=== PATIENT | female | born 1980 | race Caucasian/White ===

== ENCOUNTER 2017-09-09 21:36 | Emergency (ER) | payer BC ==
[2017-09-09 21:46] VITALS: RESP 18; TEMP 98.4
--- NOTE | 2017-09-09 22:50 | ED ---
General Adult HPI - General Chief complaint: Abdominal Pain Stated complaint: right side abdominal pain/15 wks preg Time Seen by Provider: 09/09/17 22:41 Source: patient, RN notes reviewed Mode of arrival: ambulatory Limitations: no limitations - History of Present Illness Initial comments: Patient 36-year-old female who was 15 weeks by ultrasound presented to the emergency room today with chief complaint of symptoms of dysuria that began earlier today. Patient states she came home a dinner shortly thereafter went to use the bathroom. She states after voiding had a sharp pain left side flank area. She states caused her to have increased pain felt nauseated had an episode of vomiting. She states symptoms lasted approximately half hour. She states she's had this same exact scenario happen 3 times after voiding tonight. She did call on-call OB who thought could be a bladder infection set up an appointment early in the morning. Patient states that after the last episode she wasn't sure if she'll be able to go through all night. She is currently pain-free at this time she did take Tylenol prior to coming to the emergency room. She denies any vaginal bleeding or discharge. Patient is . - Related Data Home Medications Medication Instructions Recorded Confirmed Itp-Duxu-Ssqbs Acid 1 cap PO DAILY 09/09/17 09/09/17 [-U Capsule (formulary)] Allergies Allergy/AdvReac Type Severity Reaction Status Date / Time amoxicillin Allergy Unknown Verified 09/09/17 22:37 Childhood egg Allergy Anaphylaxis Verified 09/09/17 22:37 Penicillins Allergy Unknown Verified 09/09/17 22:37 Childhood Review of Systems ROS Statement: Those systems with pertinent positive or pertinent negative responses have been documented in the HPI. ROS Other: All systems not noted in ROS Statement are negative. Past Medical History Past Medical History: No Reported History History of Any Multi-Drug Resistant Organisms: None Reported Past Surgical History: Tonsillectomy Additional Past Surgical History / Comment(s): TMJ Past Psychological History: No Psychological Hx Reported Smoking Status: Never smoker Past Alcohol Use History: None Reported Past Drug Use History: None Reported General Exam - General Exam Comments Initial Comments: General: The patient is awake and alert, in no distress, and does not appear acutely ill. Eye: Pupils are equal, round and reactive to light, extra-ocular movements are intact. No nystagmus. There is normal conjunctiva bilaterally. No signs of icterus. Ears, nose, mouth and throat: There are moist mucous membranes and no oral lesions. Neck: The neck is supple, there is no tenderness or JVD. Gastrointestinal: Soft, non-distended, non-tender abdomen without masses or organomegaly noted. There is no rebound or guarding present. No CVA tenderness. Musculoskeletal: Normal ROM, no tenderness. Strength 5/5. Sensation intact. Pulses equal bilaterally 2+. Neurological: A&O x 3. CN II-XII intact, There are no obvious motor or sensory deficits. Coordination appears grossly intact. Speech is normal. Skin: Skin is warm and dry and no rashes or lesions are noted. Psychiatric: Cooperative, appropriate mood & affect, normal judgment. Limitations: no limitations Course Vital Signs 09/09/17 09/10/17 21:42 00:59 Temperature 98.4 F Pulse Rate 90 72 Respiratory 18 18 Rate Blood Pressure 106/65 93/54 O2 Sat by Pulse 99 100 Oximetry Medical Decision Making - Medical Decision Making Patient reexamined at this time shows no signs of distress. She's been pain- free here in the emergency room. She does admit to some mild discomfort after urinating here. Patient states that she had 3 episodes of pain after voiding. Did have episodes of vomiting associated with this. Patient's urinalysis shows no sign of infection at this time culture is pending. Patient did have 23 red cells. She denies any vaginal bleeding or discharge. Patient states no history of kidney stones. Ultrasound of the kidneys and bladder was performed showing no evidence of hydronephrosis. No sign of a stone at this time. Patient's labs reviewed 15,000 white count. This is felt to be reactive to patient's nausea and vomiting. At this time patient is doing well vitals are stable. Will be discharged home to follow-up with her doctor tomorrow morning. Advised return if any symptoms increase or worsen. Patient states her stay and is in agreement. - Lab Data Result diagrams: 09/09/17 23:55 09/09/17 23:55 Lab Results 09/09/17 09/09/17 09/09/17 Range/Units 22:52 23:55 23:55 WBC 15.1 H (3.8-10.6) k/uL RBC 3.97 (3.80-5.40) m/uL Hgb 12.3 (11.4-16.0) gm/dL Hct 35.8 (34.0-46.0) % MCV 90.2 (80.0-100.0) fL MCH 31.1 (25.0-35.0) pg MCHC 34.5 (31.0-37.0) g/dL RDW 12.4 (11.5-15.5) % Plt Count 190 (150-450) k/uL Neutrophils % 90 % Lymphocytes % 6 % Monocytes % 3 % Eosinophils % 0 % Basophils % 0 % Neutrophils # 13.6 H (1.3-7.7) k/uL Lymphocytes # 0.9 L (1.0-4.8) k/uL Monocytes # 0.5 (0-1.0) k/uL Eosinophils # 0.0 (0-0.7) k/uL Basophils # 0.0 (0-0.2) k/uL Sodium 133 L (137-145) mmol/L Potassium 4.0 (3.5-5.1) mmol/L Chloride 98 (98-107) mmol/L Carbon Dioxide 23 (22-30) mmol/L Anion Gap 12 mmol/L BUN 8 (7-17) mg/dL Creatinine 0.50 L (0.52-1.04) mg/dL Est GFR (CKD-EPI)AfAm >90 (>60 ml/min/1.73 sqM) Est GFR (CKD-EPI)NonAf >90 (>60 ml/min/1.73 sqM) Glucose 93 (74-99) mg/dL Calcium 9.1 (8.4-10.2) mg/dL Total Bilirubin 0.2 (0.2-1.3) mg/dL AST 19 (14-36) U/L ALT 27 (9-52) U/L Alkaline Phosphatase 46 (38-126) U/L Total Protein 6.5 (6.3-8.2) g/dL Albumin 3.7 (3.5-5.0) g/dL Urine Color Yellow Urine Appearance Cloudy H (Clear) Urine pH 6.0 (5.0-8.0) Ur Specific [place] 1.022 (1.001-1.035) Urine Protein Trace H (Negative) Urine Glucose (UA) Negative (Negative) Urine Ketones 2+ H (Negative) Urine Blood Small H (Negative) Urine Nitrite Negative (Negative) Urine Bilirubin Negative (Negative) Urine Urobilinogen <2.0 (<2.0) mg/dL Ur Leukocyte Esterase Negative (Negative) Urine RBC 23 H (0-5) /hpf Urine WBC 3 (0-5) /hpf Ur Squamous Epith Cells 5 H (0-4) /hpf Urine Bacteria Rare H (None) /hpf Urine Mucus Occasional H (None) /hpf Disposition Clinical Impression: Dysuria Disposition: HOME SELF-CARE Condition: Good Instructions: Dysuria (ED) Additional Instructions: Please use medication of Tylenol as discussed. Please follow-up with [facility] MANAGER/ family doctor in the next 1-2 days. Please return to emergency room if the symptoms increase or worsen or for any other concerns. Is patient prescribed a controlled substance at d/c from ED?: No Referrals: None,Stated [Primary Care Provider] - 1-2 days Time of Disposition: 01:37
[2017-09-09 23:17] LABS: Appearance,Urine Cloudy (Clear); Bacteria,Urine Rare /hpf; Bilirubin,Urine Negative (Negative); Blood,Urine Small (Negative); Color,Urine Yellow; Glucose,Urine (UA) Negative (Negative); Ketones,Urine 2+ (Negative); Leukocyte Esterase,Urine Negative (Negative); Mucus,Urine Occasional /hpf; Nitrite,Urine Negative (Negative); Protein,Urine Trace (Negative); RBC,Urine 23 /hpf (0-5); Specific Gravity,Urine 1.022 (1.001-1.035); Squamous Epithelial Cell,Urine 5 /hpf (0-4); Urobilinogen,Urine <2.0 mg/dL (<2.0); WBC,Urine 3 /hpf (0-5)
[2017-09-09] MEDS ORDERED: SODIUM CHLORIDE 0.9% 1,000 ML IV STA (23:38)
[2017-09-10 00:10] LABS: Basophils % (A) 0 %; Eosinophils % (A) 0 %; HCT 35.8 % (34.0-46.0); HGB 12.3 gm/dL (11.4-16.0); Lymphocytes # (A) 0.9 k/uL (1.0-4.8); Lymphocytes % (A) 6 %; MCH 31.1 pg (25.0-35.0); MCHC 34.5 g/dL (31.0-37.0); MCV 90.2 fL (80.0-100.0); Monocytes # (A) 0.5 k/uL (0-1.0); Monocytes % (A) 3 %; Neutrophils # (A) 13.6 k/uL (1.3-7.7); Neutrophils % (A) 90 %; Platelet Count 190 k/uL (150-450); RBC 3.97 m/uL (3.80-5.40); RDW 12.4 % (11.5-15.5); WBC 15.1 k/uL (3.8-10.6)
[2017-09-10 00:32] LABS: ALT 27 U/L (9-52); AST 19 U/L (14-36); Albumin 3.7 g/dL (3.5-5.0); Alkaline Phosphatase 46 U/L (38-126); Anion Gap 12 mmol/L; Blood Urea Nitrogen 8 mg/dL (7-17); Calcium 9.1 mg/dL (8.4-10.2); Carbon Dioxide 23 mmol/L (22-30); Chloride 98 mmol/L (98-107); Glucose 93 mg/dL (74-99); Sodium 133 mmol/L (137-145); Total Bilirubin 0.2 mg/dL (0.2-1.3); Total Protein 6.5 g/dL (6.3-8.2)
--- NOTE | 2017-09-10 00:53 | US ---
EXAMINATION TYPE: US kidneys/renal and bladder DATE OF EXAM: 09/10/2017 COMPARISON: NONE CLINICAL HISTORY: Pain. Pain while urinating. Exam limitations on left side due to rib shadowing. EXAM MEASUREMENTS: Right Kidney: 11.2 x 4.1 x 4.0 cm Left Kidney: 10.7 x 4.4 x 4.1 cm Right Kidney: No hydronephrosis or masses seen Left Kidney: No hydronephrosis or masses seen Bladder: wnl Bilateral Jets seen: Yes There is no evidence for hydronephrosis at this point in time. No nephrolithiasis is seen. No more s are identified. The urinary bladder is anechoic. Bilateral ureteral jets are seen. IMPRESSION: Negative bilateral renal sonogram. No evidence of renal mass or obstruction.
[2017-09-10 01:52] VITALS: BP 91/50; PULSE 65
== END 2017-09-10 01:51 | disposition home or self-care (01) ==
LOC: EC 21:36
DX: O99.89 Other specified diseases and conditions complicating pregnancy, childbirth and the puerperium (principal); R30.0 Dysuria; O21.9 Vomiting of pregnancy, unspecified; O26.892 Other specified pregnancy related conditions, second trimester; R10.9 Unspecified abdominal pain; Z3A.15 15 weeks gestation of pregnancy; Z88.0 Allergy status to penicillin; Z91.012 Allergy to eggs
CPT/HCPCS: 36415; 76770; 80053; 81001; 85025; 87086; 96360; 99284

== ENCOUNTER 2018-02-19 04:59 | Outpatient (CLI) | payer BC ==
[2018-02-19 07:14] VITALS: BP 131/75; PULSE 83; RESP 16; TEMP 97.7
--- NOTE | 2018-03-15 09:29 | P.MSEPDOC ---
Presenting Problems - Arrival Data Date of Arrival on Unit: 02/19/18 Time of Arrival on Unit: 05:10 Mode of Transport: Ambulatory - Complaint OB-Reason for Admission/Chief Complaint: Possible Onset of Labor Medical History - Information : 1 Para: 0 Term: 0 : 0 Abortions: Spontaneous or Elective: 0 Number of Living Children: 0 - Gestational Age Gestational Age by CHAGO (wks/days): 38 Weeks and 1 Days Review of Systems - Review of Systems Constitutional: No problems Breast: No problems ENT: No problems Cardiovascular: No problems Respiratory: No problems Gastrointestinal: No problems Genitourinary: No problems Musculoskeletal: No problems Neurological: No problems Skin: No problems Vital Signs - Temperature Temperature: 97.7 F Temperature Source: Tympanic - Pulse Right Brachial Pulse Rate: 83 Pulse Assessment Method: Automatic Cuff - Respirations Respiratory Rate: 16 Oxygen Delivery Method: Room Air - Blood Pressure Right Arm Blood Pressure: 131/75 Blood Pressure Mean: 93 Blood Pressure Source: Automatic Cuff Medical Screen Scoring (Pre) - Cervical Exam Dilation: 1-3 cm = 1 Effacement: More than 50% = 2 Membranes: Intact - Uterine Contractions Frequency: > 5 minutes apart = 1 Duration: > 40 seconds = 2 Intensity: N/A - Maternal Vital Signs Maternal Temperature: N/A Maternal Blood Pressure: N/A Signs of Preeclampsia: N/A Maternal Respirations: N/A - Pain Assessment Pain Location and Character: Abdomen Pain Scale Used: Numeric (1 - 10) Pain Intensity: 5 Pain Management Goal: 2 Pain Description: *Acute Pain Radiation Location: na Pain Frequency: Intermittent Pain Duration: 2 Pain Duration Units: Minutes Pain Behavior: Vocalization Pain Aggravating Factors: None Non-Pharmacological Interventions: Position/Reposition - Maternal Trauma Maternal Trauma: N/A - Assessment Baseline FHR: 145 Heart Rate - NICHD Category: Category I (Normal) = 0 NST: Reactive Position: N/A Station: N/A - Total Score Total Score (Pre): 6 - Level of Risk Level of Risk: Medium (6-9) Physician Notification (Pre) - Physician Notified Physician Notified Date: 02/19/18 Physician Notified Time: 06:31 Physician/Practitioner Notifed:: Dr. Ulloa Spoke With: Dr. Ulloa New Order Received: Yes - Notification Comment Comment: d/c home to f/up with Dr. Betancur Disposition - Disposition OB Disposition: Physician follow up in office, Discharge to home Discharge Date: 02/19/18 Discharge Time: 06:32 I agree with the RN Medical Screening Exam: Yes Risk & Benefit of care provided described in d/c instruction: Yes Diagnosis: FALSE LABOR AT OR AFTER 37 COMPLETED WEEKS OF GESTATION
== END 2018-02-19 06:42 | disposition home or self-care (01) ==
LOC: FBPOP 04:59
PROVIDERS: ATTEND Obstetrics & Gynecology
DX: O47.1 False labor at or after 37 completed weeks of gestation (principal); Z3A.38 38 weeks gestation of pregnancy
CPT/HCPCS: 59025; 99213

== ENCOUNTER 2018-02-23 09:04 | Inpatient (IN) | payer BC ==
[2018-02-23 10:12] VITALS: BMI 26.6
[2018-02-23] MEDS ORDERED: TERBUTALINE 1 MG/ML VIAL SQ PRN (10:14)
[2018-02-23] MEDS ORDERED: METHYLERGONOVINE 0.2 MG/ML 1 ML AMP IM PRN (10:14)
[2018-02-23] MEDS ORDERED: LIDOCAINE 0.5% (PF) 5 MG/ML (50 ML SDV) SQ PRN (10:14)
[2018-02-23] MEDS ORDERED: OXYTOCIN 10 UNIT/ML 1 ML VIAL IM PRN (10:14)
[2018-02-23] MEDS ORDERED: CARBOPROST TROMETHAMINE 250 MCG/ML 1 ML AMP IM PRN (10:14)
[2018-02-23 10:20] LABS: Basophils % (A) 0 %; Eosinophils # (A) 0.1 k/uL (0-0.7); Eosinophils % (A) 1 %; HCT 38.2 % (34.0-46.0); HGB 12.5 gm/dL (11.4-16.0); Lymphocytes # (A) 1.9 k/uL (1.0-4.8); Lymphocytes % (A) 16 %; MCH 29.7 pg (25.0-35.0); MCHC 32.8 g/dL (31.0-37.0); MCV 90.7 fL (80.0-100.0); Mean Platelet Volume 8.1; Monocytes # (A) 0.5 k/uL (0-1.0); Monocytes % (A) 4 %; Neutrophils # (A) 9.3 k/uL (1.3-7.7); Neutrophils % (A) 77 %; Platelet Count 217 k/uL (150-450); RBC 4.21 m/uL (3.80-5.40); RDW 12.8 % (11.5-15.5); WBC 12.1 k/uL (3.8-10.6)
[2018-02-23] MEDS: LACTATED RINGERS 1,000 ML IV SCH ×2 (10:23→11:40)
[2018-02-23] MEDS ORDERED: SODIUM CHLORIDE 0.9% 100 ML BAG ONE (10:52)
[2018-02-23] MEDS ORDERED: ROPIVACAINE 5MG/ML 20ML VIAL ONE (10:52)
[2018-02-23] MEDS ORDERED: fentaNYL (PF) 50 MCG/ML 5 ML AMP ONE (10:52)
[2018-02-23] MEDS: OXYTOCIN 20 UNITS/1000 ML NS 1,000 ML IV SCH (12:45)
--- NOTE | 2018-02-23 16:50 | P.HPOB ---
History of Present Illness H&P Date: 02/23/18 Chief Complaint: IUP @ SROM This a 37 yo at 38 5/7 weeks gestation that presents with c/o SROM clear in nature. around 2 am. she notes irregular contractions. Patient has been receiving routine care with myself in 7 weeks of gestation. Patient is noted to be advanced maternal age on blood work she had a blood type of A+, rubella immune, RPR nonreactive, hepatitis B surface antigen negative, HIV negative, her 1 hour gestational diabetes screen was normal at 97 and group beta strep was negative on 02/01/2018. Review of Systems Constitutional: Denies chills, Denies fatigue, Denies fever Ears, nose, mouth and throat: Denies headache Cardiovascular: Reports leg edema Respiratory: Denies cough, Denies dyspnea Gastrointestinal: Denies constipation, Denies diarrhea, Denies nausea, Denies vomiting Genitourinary: Reports Past Medical History Past Medical History: No Reported History History of Any Multi-Drug Resistant Organisms: None Reported Past Surgical History: Tonsillectomy Additional Past Surgical History / Comment(s): TMJ Past Anesthesia/Blood Transfusion Reactions: No Reported Reaction Past Psychological History: No Psychological Hx Reported Smoking Status: Never smoker Past Alcohol Use History: None Reported Past Drug Use History: None Reported - Past Family History Father Family Medical History: Coronary Artery Disease (CAD) Medications and Allergies Home Medications Medication Instructions Recorded Confirmed Type Bie-Xvnf-Wcgzw Acid 1 cap PO DAILY 09/09/17 02/23/18 History [-U Capsule (formulary)] Allergies Allergy/AdvReac Type Severity Reaction Status Date / Time amoxicillin Allergy Unknown Verified 02/23/18 09:20 Childhood egg Allergy Anaphylaxis Verified 02/23/18 09:20 Penicillins Allergy Unknown Verified 02/23/18 09:20 Childhood Exam Osteopathic Statement: *. No significant issues noted on an osteopathic structural exam other than those noted in the History and Physical/Consult. Vital Signs Temp Pulse Resp BP Pulse Ox 02/23/18 09:59 97.3 F L 81 18 129/75 100 02/23/18 09:43 97.3 F L 82 18 129/75 100 Intake and Output 02/22/18 02/23/18 02/23/18 22:59 06:59 14:59 Other: Weight 77.111 kg Targeted physical exam was performed in general this is a well-nourished well- developed female in no acute distress, she notes nonlabored breathing lungs are clear to auscultation bilaterally, heart is noted to have a regular rhythm, abdomen is gravid and appropriate for gestational age, legs were noted to have trace bilateral lower extremity swelling, on vaginal exam cervix is noted to be 5, 100, -1 with clear fluid. heart tones were noted to be reactive and she was leann every 5 minutes. Results Result Diagrams: 02/23/18 10:10 Abnormal Lab Results - Last 24 Hours (Table) 02/23/18 Range/Units 10:10 WBC 12.1 H (3.8-10.6) k/uL Neutrophils # 9.3 H (1.3-7.7) k/uL Assessment and Plan (1) Term Current Visit: Yes Status: Acute Code(s): Z34.80 - ENCOUNTER FOR SUPRVSN OF NORMAL , UNSP TRIMESTER SNOMED Code(s): 58194123 (2) SROM (spontaneous rupture of membranes) Current Visit: Yes Status: Acute Code(s): PRJ4815 - SNOMED Code(s): 504071972 Plan: We'll admit to labor and delivery. Patient does request epidural when uncomfortable and we will inform anesthesia at that time. Anticipate spontaneous vaginal delivery later this evening.
[2018-02-23] MEDS ORDERED: CITRIC ACID-SODIUM CITRATE 15 ML CUP PO ONE (17:48)
[2018-02-23] MEDS ORDERED: CLINDAMYCIN 600 MG in DEXTROSE 5% IN WATER 50 ML IVPB STA ×2 (17:49)
[2018-02-23] MEDS ORDERED: OXYTOCIN 10 UNIT/ML 1 ML VIAL ONE (18:01)
[2018-02-23] MEDS ORDERED: ONDANSETRON 4 MG/2 ML VIAL ONE (18:01)
[2018-02-23] MEDS ORDERED: MORPHINE SULFATE (PF) 0.3 MG/0.3 ML SYR ONE (18:01)
[2018-02-23] MEDS ORDERED: ONDANSETRON 4 MG/2 ML VIAL IVP PRN ×2 (18:29→18:40)
[2018-02-23] MEDS ORDERED: NALOXONE 0.4 MG/ML 1 ML VIAL IV PRN ×2 (18:29→18:40)
[2018-02-23] MEDS ORDERED: KETOROLAC 30 MG/ML 1 ML VIAL IVP PRN (18:29)
[2018-02-23] MEDS ORDERED: HYDROmorphone 1 MG/ML 1 ML SYRINGE IVP PRN (18:29)
[2018-02-23] MEDS ORDERED: diphenhydrAMINE 50 MG/ML 1 ML VIAL IVP PRN ×3 (18:29→18:40)
[2018-02-23] MEDS ORDERED: diphenhydrAMINE 25 MG CAP PO PRN (18:40)
[2018-02-23] MEDS ORDERED: ACETAMINOPHEN TAB 325 MG TAB PO PRN (18:40)
[2018-02-23] MEDS ORDERED: diphenhydrAMINE 50 MG CAP PO PRN (18:40)
[2018-02-23] MEDS ORDERED: ZOLPIDEM 5 MG TAB PO PRN (18:40)
[2018-02-23] MEDS ORDERED: ACETAMINOPHEN IV (For NPO) 1,000 MG in EMPTY BAG 1 BAG IVPB ONE (18:40)
[2018-02-23] MEDS ORDERED: HYDROcodone/APAP 7.5-325MG 1 EACH TAB PO PRN (18:40)
[2018-02-23] MEDS ORDERED: METOCLOPRAMIDE 5 MG/ML 2 ML VIAL IVP PRN (18:40)
[2018-02-23] MEDS ORDERED: LANOLIN CREAM 5 GM TUBE TOPICAL PRN (18:40)
--- NOTE | 2018-02-23 18:40 | P.OP ---
Date of Procedure: 02/23/18 Preoperative Diagnosis: IUP at 38-5/7 weeks, spontaneous rupture of membranes, arrest of descent Postoperative Diagnosis: Same Procedure(s) Performed: Primary low transverse section Anesthesia: epidural Surgeon: Cyndie Betancur Telemarketer #1: Tariq Epps Estimated Blood Loss (ml): 300 IV fluids (ml): 400 Urine output (ml): 100 Pathology: none sent Condition: stable Disposition: observation Indications for Procedure: Arrest of descent after 1-1/2 hours of pushing. head remained at 0 station with increasing It. heart tones, baseline was noted to be increasing to 170s Operative Findings: Normal uterus tubes and ovaries were appreciated male delivered at 1813, weight of 8 lbs. 5 oz. with Apgars of 69 and 9 at one and 5 and 10 minutes respectively. Description of Procedure: The patient was prepped and draped in the usual fashion after epidural anesthesia was found to be adequate.. A Pfannenstiel incision was made and extended of the abdominal cavity without difficulty. The bladder peritoneum was elevated and incised and reflected distally. A 2 cm incision was made in the transverse plane of the lower uterine segment to enter the uterus at which time clear fluid was noted. The incision was extended in both directions using the bandage scissors. The head was encountered within the field and delivered up and through the incision where the nose and mouth were thoroughly suctioned. Remainder of the infant was delivered onto the surgical field where the cord was doubly clamped, cut, and the infant was passed for resuscitative measures with weight and Apgars as noted above. The placenta was delivered manually, intact, and was grossly normal with a grossly normal three-vessel cord. The uterus was exteriorized and the interior cavity of the uterus swept of any remaining placental and membranous fragments with a laparotomy sponge. The margins of the incision were grasped with allis clamps and the incision closed in 2 layers. First layer was a running locking layer of 0 vicryl from margin to margin followed by a second layer of imbricating 0 vicryl from margin to margin. Any small points of bleeding were then made hemostatic with the Bovie. Once hemostasis was achieved, the posterior cul-de-sac was suctioned with a guard and the uterine and ovarian findings are as noted above. The uterus was replaced within the abdominal cavity and the gutters swept of any remaining blood fluid or clot. The incision was again reexamined and hemostasis was noted to be excellent. Any small point of bleeding were made hemostatic with the Bovie. Once hemostasis was achieved the parietal peritoneum was loosely reapproximated. The layer of muscles were examined and made hemostatic with the Bovie. Attention was then turned to the fascia which was closed with 2 running stitches of 0 Vicryl proceeding from the lateral margins to the midpoint. The subcutaneous tissues were irrigated, made hemostatic with the Bovie. The skin was reapproximated with 4-0 vicryl. Estimated blood loss for the case was approximately 300 mL. All sponge instrument and needle counts are correct. There were no complications. The patient tolerated the procedure well and proceeded to the recovery room in stable condition. Both mother and infant are resting comfortably in recovery.
[2018-02-23] MEDS ORDERED: OXYTOCIN 20 UNITS/1000 ML NS 1,000 ML IV SCH (18:45)
[2018-02-24] MEDS ORDERED: IBUPROFEN IV 800 MG in SODIUM CHLORIDE 0.9% 250 ML IV ONE (03:30)
--- NOTE | 2018-02-24 07:30 | P.PN ---
Progress Note - Text Progress Note Date: 02/24/18 Postoperative day 1 status post section under epidural anesthesia, and epidural morphine given for postoperative analgesia, patient doing well, there is no anesthesia related complications, Patient had no headache, vital signs stable , Assessment and plan= postop day 1 status post , doing well there is no anesthesia related complication.
[2018-02-24 08:02] LABS: Basophils % (A) 0 %; Eosinophils # (A) 0.1 k/uL (0-0.7); Eosinophils % (A) 0 %; HCT 30.9 % (34.0-46.0); HGB 10.3 gm/dL (11.4-16.0); Lymphocytes # (A) 1.3 k/uL (1.0-4.8); Lymphocytes % (A) 7 %; MCH 30.2 pg (25.0-35.0); MCHC 33.3 g/dL (31.0-37.0); MCV 90.7 fL (80.0-100.0); Mean Platelet Volume 8.6; Monocytes # (A) 0.8 k/uL (0-1.0); Monocytes % (A) 4 %; Neutrophils # (A) 17.1 k/uL (1.3-7.7); Neutrophils % (A) 89 %; Platelet Count 153 k/uL (150-450); RBC 3.41 m/uL (3.80-5.40); WBC 19.3 k/uL (3.8-10.6)
[2018-02-24] MEDS: SENNOSIDES-DOCUSATE SODIUM 1 EACH TAB PO SCH ×3 (08:08→19:55)
[2018-02-24] MEDS: LACTATED RINGERS 1,000 ML IV SCH ×4 (08:11→20:54)
--- NOTE | 2018-02-24 08:33 | P.PNOBGPC ---
Subjective - Subjective Principal diagnosis: POD 1 LTCS, arrest of descent Interval history: Patient is doing well postoperatively. She is ambulating without difficulty. She is tolerating regular diet without nausea or vomiting. Adair was discontinued this morning and we are awaiting a spontaneous void. Lochia is minimal. She states breast feeding is going well Patient reports: Reports appetite normal, Reports voiding normally, Reports pain well controlled, Reports ambulating normally : doing well, nursing well Objective - Vital Signs Latest vital signs: Vital Signs Temp Pulse Resp BP Pulse Ox 02/24/18 05:00 16 02/24/18 04:00 83 16 102/59 02/24/18 03:00 16 02/24/18 01:00 16 02/23/18 23:56 97.6 F 69 16 111/60 99 02/23/18 23:00 16 02/23/18 21:29 18 98 02/23/18 20:42 97.4 F L 67 18 114/61 02/23/18 20:12 69 18 117/66 100 02/23/18 19:42 97.9 F 79 18 119/62 98 02/23/18 19:29 91 18 99 02/23/18 19:27 91 18 109/71 02/23/18 19:12 97.8 F 84 18 122/73 96 02/23/18 18:57 95 18 128/82 97 02/23/18 18:42 99.0 F 93 18 125/60 97 02/23/18 09:59 97.3 F L 81 18 129/75 100 02/23/18 09:43 97.3 F L 82 18 129/75 100 Intake and Output 02/23/18 02/24/18 02/24/18 22:59 06:59 14:59 Intake Total 250 Output Total 300 Balance -50 Intake: Intake, IV Titration 250 Amount Lactated Ringers 1,000 ml 250 @ 125 mls/hr IV .Q8H [facility] Rx#:[id number] Output: Urine 300 Other: Voiding Method Indwelling Catheter Indwelling Catheter # Voids 0 - Exam Extremities: Present: normal Abdomen: Present: normal appearance, soft Incision: Present: normal, dry, intact Uterus: Present: normal, firm - Labs Labs: Abnormal Lab Results - Last 24 Hours (Table) 02/23/18 02/24/18 Range/Units 10:10 07:47 WBC 12.1 H 19.3 H (3.8-10.6) k/uL RBC 3.41 L (3.80-5.40) m/uL Hgb 10.3 L (11.4-16.0) gm/dL Hct 30.9 L (34.0-46.0) % Neutrophils # 9.3 H 17.1 H (1.3-7.7) k/uL Assessment and Plan (1) Term Current Visit: Yes Status: Acute Code(s): Z34.80 - ENCOUNTER FOR SUPRVSN OF NORMAL , UNSP TRIMESTER SNOMED Code(s): 50788780 (2) SROM (spontaneous rupture of membranes) Current Visit: Yes Status: Acute Code(s): HWC2066 - SNOMED Code(s): 152718329 (3) Arrest of descent, delivered, current hospitalization Current Visit: Yes Status: Acute Code(s): O62.1 - SECONDARY UTERINE INERTIA SNOMED Code(s): 62252950 (4) S/P section Current Visit: Yes Status: Acute Code(s): Z98.891 - HISTORY OF UTERINE SCAR FROM PREVIOUS SURGERY SNOMED Code(s): 792475367 Plan: We'll continue postoperative care. And anticipate discharge home tomorrow.
[2018-02-24] MEDS ORDERED: PRENATAL VIT-IRON-FOLIC ACID 1 EACH CAP PO SCH (12:00)
[2018-02-24 12:07] VITALS: RESP 16
[2018-02-24] MEDS: HYDROcodone/APAP 5-325MG 1 EACH TAB PO PRN ×3 (12:20→22:04)
[2018-02-24] MEDS: IBUPROFEN 600 MG TAB PO PRN (19:52)
[2018-02-24] MEDS: OXYTOCIN 20 UNITS/1000 ML NS 1,000 ML IV SCH (20:47)
[2018-02-25] MEDS: IBUPROFEN 600 MG TAB PO PRN ×2 (03:57→13:04)
[2018-02-25] MEDS: HYDROcodone/APAP 5-325MG 1 EACH TAB PO PRN (06:48)
--- NOTE | 2018-02-25 08:07 | P.DS ---
Providers Date of admission: 02/23/18 09:30 Expected date of discharge: 02/25/18 Attending physician: Cyndie Betancur Primary care physician: Stated None - Discharge Diagnosis(es) (1) Term Current Visit: Yes Status: Acute (2) SROM (spontaneous rupture of membranes) Current Visit: Yes Status: Acute (3) Arrest of descent, delivered, current hospitalization Current Visit: Yes Status: Acute (4) S/P section Current Visit: Yes Status: Acute Hospital Course: This is a 37-year-old 1 para 0 that presented to labor and delivery at 38-5/7 weeks with an estimated due date of 1220. Patient noted spontaneous rupture of membranes clear in nature acid loader. Patient was leann irregularly at that time. Patient was making cervical progressed eventually becoming uncomfortable and requesting an epidural. Epidural was placed without difficulty by the anesthesia department. Patient's contractions were noted to be spacing therefore Pitocin augmentation of labor was begun. Patient progressed to complete began pushing and had arrest of descent. Patient pushed for 2 hours with no descent past -1 station and increasing It. At the time the decision was made to take the patient for a primary low transverse section secondary to arrest of descent or second stage of labor. Patient was agreeable for further details on the please see the operative report. Patient's postoperative course has been uneventful. Patient denies concerns on this postop day #2. She is involuting and voiding without difficulty. She is tolerating a regular diet without nausea or vomiting. Her lochia is minimal. She is breast-feeding without difficulty. She does wish discharge home today. Plan - Discharge Summary New Discharge Prescriptions: No Action Yti-Fqqi-Kkiji Acid [-U Capsule (formulary)] 1 cap PO DAILY Discharge Medication List Hqs-Oeeo-Rdzgs Acid [-U Capsule (formulary)] 1 cap PO DAILY [History] Follow up Appointment(s)/Referral(s): Cyndie Betancur DO [Doctor of Osteopathic Medicine] - 2 Weeks Patient Instructions/Handouts: (DC), (GEN) Discharge Disposition: HOME SELF-CARE
[2018-02-25] MEDS: SENNOSIDES-DOCUSATE SODIUM 1 EACH TAB PO SCH (08:19)
[2018-02-25 08:23] VITALS: BP 114/56; PULSE 80; TEMP 98.1
== END 2018-02-25 15:35 | disposition home or self-care (01) | DRG 788 ==
LOC: FBPOP 09:04 → 4FBP 09:30
PROVIDERS: ADMIT Obstetrics & Gynecology Obstetrics; ATTEND Obstetrics & Gynecology Obstetrics
PROC: 10D00Z1 Extraction of Products of Conception, Low, Open Approach (ICD-10-PCS; principal; 2018-02-23 18:17)
DX: O62.1 Secondary uterine inertia (principal); Z3A.38 38 weeks gestation of pregnancy; Z37.0 Single live birth
CPT/HCPCS: 59025; 84112; 85025; 86850; 86900; 86901; 99213

== ENCOUNTER → 2019-04-13 | Outpatient (CLI) | payer BC ==
--- NOTE | 2019-04-13 10:48 | MM ---
Reason for exam: clinical finding. History: Patient had first child at age 38. Family history of breast cancer in maternal aunt at age 60. Physical Findings: Nurse did not find any significant physical abnormalities on exam. MG Diagnostic Mammo w CAD HELEN Bilateral CC and MLO view(s) were taken. The breast tissue is heterogeneously dense. This may lower the sensitivity of mammography. No suspicious abnormality. These results were verbally communicated with the patient and result sheet given to the patient on 04/13/19. ASSESSMENT: Negative, BI-RAD 1 RECOMMENDATION: Routine screening mammogram of both breasts at age 40. (or sooner if clinically indicated) Manage on a clinical basis. Yellow and white nipple discharge are physiologic. If any clear nipple discharge persists retroareolar ultrasound should be performed.
== END | disposition home or self-care (01) ==
LOC: RADMAMWWP 09:10
PROVIDERS: ATTEND Obstetrics & Gynecology Obstetrics
DX: N64.4 Mastodynia (principal); N64.52 Nipple discharge
CPT/HCPCS: 77066

== ENCOUNTER 2020-05-08 09:30 | Outpatient (CLI) | payer BC ==
[2020-05-08] MEDS ORDERED: TERBUTALINE 1 MG/ML VIAL SQ PRN (10:09)
[2020-05-08 10:11] LABS: Appearance,Urine Clear (Clear); Bilirubin,Urine Negative (Negative); Blood,Urine Negative (Negative); Color,Urine Colorless; Glucose,Urine (UA) Negative (Negative); Ketones,Urine Negative (Negative); Leukocyte Esterase,Urine Negative (Negative); Nitrite,Urine Negative (Negative); PH, Urine 6.5 (5.0-8.0); Protein,Urine Negative (Negative); Specific Gravity,Urine 1.002 (1.001-1.035); Urobilinogen,Urine <2.0 mg/dL (<2.0)
[2020-05-08 11:26] VITALS: PULSE 84; RESP 16; TEMP 97.7
[2020-05-08 11:28] VITALS: BP 121/68
--- NOTE | 2020-05-11 15:40 | P.MSEPDOC ---
Presenting Problems - Arrival Data Date of Arrival on Unit: 05/08/20 Time of Arrival on Unit: 09:30 Mode of Transport: Ambulatory - Complaint OB-Reason for Admission/Chief Complaint: Decreased Movement Comment: Pt reports decreased movement for several hours as well as contractions Medical History - Information : 2 Para: 1 Term: 1 : 0 Abortions: Spontaneous or Elective: 0 Number of Living Children: 1 - Gestational Age Gestational Age by CHAGO (wks/days): 34 Weeks and 5 Days - History Complications: Prior Review of Systems - Review of Systems Constitutional: No problems Breast: No problems ENT: No problems Cardiovascular: No problems Respiratory: No problems Gastrointestinal: No problems Genitourinary: No problems Musculoskeletal: No problems Neurological: No problems Skin: No problems Vital Signs - Temperature Temperature: 97.7 F Temperature Source: Temporal Artery Scan - Pulse Right Sitting Brachial Pulse Rate: 84 Pulse Assessment Method: Automatic Cuff - Respirations Respiratory Rate: 16 Oxygen Delivery Method: Room Air O2 Sat by Pulse Oximetry: 99 - Blood Pressure Right Arm Sitting Blood Pressure: 121/68 Blood Pressure Mean: 85 Blood Pressure Source: Automatic Cuff Medical Screen Scoring (Pre) - Cervical Exam Dilation: 0 cm = 0 Membranes: Intact - Uterine Contractions Frequency: < 36 weeks = 6, Scheduled / = 6 Duration: > 40 seconds = 2 Intensity: N/A - Maternal Vital Signs Maternal Temperature: N/A Maternal Blood Pressure: N/A Signs of Preeclampsia: N/A Maternal Respirations: N/A - Maternal Trauma Maternal Trauma: N/A - Assessment - Baby A Baseline FHR: 140 Heart Rate - NICHD Category: Category I (Normal) = 0 NST: Reactive Position: N/A Station: N/A - Total Score - Baby A Total Score - Baby A: 14 - Total Score - Baby B Total Score - Baby B: 14 - Total Score - Baby C Total Score - Baby C: 14 - Level of Risk - Baby A Level of Risk - Baby A: High (10+) - Level of Risk - Baby B Level of Risk - Baby B: High (10+) - Level of Risk - Baby C Level of Risk - Baby C: High (10+) Physician Notification (Pre) - Physician Notified Physician Notified Date: 05/08/20 Physician Notified Time: 09:53 New Order Received: Yes - Notification Comment Comment: Spk c\Dr. Betancur, present on unit, advsd , 34 07/20 to triage c\concerns of. decreased movement and contractions, leann q2min, pt denies pain. c\contraction, has suprapubic pressure. heart tones reactive. Orders UA, FFN and. SVE and admin dose of Terb. Medical Screen Scoring (Post) - Uterine Contractions Frequency: > 5 minutes apart = 1 - Assessment - Baby A Heart Rate: 140 Heart Rate - NICHD Category: Category I (Normal) = 0 NST: Reactive Position: N/A Station: N/A - Total Score Total Score - Baby A: 1 Total Score - Baby B: 1 Total Score - Baby C: 1 - Post Treatment Level of Risk Post Treatment Level of Risk - Baby A: Low (0-5) Post Treatment Level of Risk - Baby B: Low (0-5) Post Treatment Level of Risk - Baby C: Low (0-5) Physician Notification (Post) - Physician Notified Physician Notified Date: 05/08/20 Physician Notified Time: 11:05 Physician/Practitioner Notified:: Pipe Spoke With: Pipe New Order Received: Yes - Notification Comment Comment: Spk c\Dr. Betancur, advsd of negative FFN, previously reviewed UA, pts contraction. pattern has ceased, contracted 1x in 30 mins. Reactive FHT. Pt has appt tomorrow c\Dr. Betancur at 0830. Order's rec'd to d/c home, follow up as scheduled. Disposition - Disposition OB Disposition: Discharge to home, Written follow up instructions reviewed Discharge Date: 05/08/20 Discharge Time: 11:20 I agree with the RN Medical Screening Exam: Yes Case reviewed; plan agreed upon as documented in EMR&OBIX.: Yes Diagnosis: FALSE LABOR BEFORE 37 COMPLETED WEEKS OF GEST, THIRD TRI
== END 2020-05-08 11:20 | disposition home or self-care (01) ==
LOC: FBPOP 09:30
PROVIDERS: ATTEND Obstetrics & Gynecology Obstetrics
DX: O47.03 False labor before 37 completed weeks of gestation, third trimester (principal); Z3A.34 34 weeks gestation of pregnancy; O36.8130 Decreased fetal movements, third trimester, not applicable or unspecified
CPT/HCPCS: 59025; 99214; 96372; 82731; 81003; J3105

== ENCOUNTER 2020-05-25 19:48 | Outpatient (CLI) | payer BC ==
[2020-05-25] MEDS ORDERED: TERBUTALINE 1 MG/ML VIAL SQ STA (21:26)
[2020-05-25] MEDS ORDERED: LACTATED RINGERS 1,000 ML IV ONE (21:30)
[2020-05-25 21:57] VITALS: RESP 20
[2020-05-25 23:05] VITALS: BP 121/59; PULSE 86; TEMP 97.3
== END 2020-05-25 22:46 | disposition home or self-care (01) ==
LOC: FBPOP 19:48
PROVIDERS: ATTEND Obstetrics & Gynecology
DX: O26.893 Other specified pregnancy related conditions, third trimester (principal); Z3A.00 Weeks of gestation of pregnancy not specified
CPT/HCPCS: 59025; 99214; 96360; 96372; J3105

== ENCOUNTER 2020-06-07 09:52 | Inpatient (IN) | payer BC ==
[2020-06-06 09:11] VITALS: BMI 25.8
[2020-06-07] MEDS ORDERED: CITRIC ACID-SODIUM CITRATE 15 ML CUP PO ONE (10:48)
[2020-06-07] MEDS ORDERED: LACTATED RINGERS 1,000 ML IV ONE (10:48)
[2020-06-07] MEDS ORDERED: CLINDAMYCIN 900 MG in DEXTROSE 5% IN WATER 50 ML IVPB ONE ×2 (10:48)
[2020-06-07 11:10] LABS: Basophils % (A) 0 %; Eosinophils # (A) 0.6 k/uL (0-0.7); Eosinophils % (A) 5 %; HCT 36.3 % (34.0-46.0); HGB 12.3 gm/dL (11.4-16.0); Lymphocytes # (A) 1.4 k/uL (1.0-4.8); Lymphocytes % (A) 12 %; MCH 31.1 pg (25.0-35.0); MCV 91.5 fL (80.0-100.0); Mean Platelet Volume 9.3; Monocytes # (A) 0.5 k/uL (0-1.0); Monocytes % (A) 4 %; Neutrophils # (A) 9.1 k/uL (1.3-7.7); Neutrophils % (A) 77 %; Platelet Count 200 k/uL (150-450); RBC 3.96 m/uL (3.80-5.40); RDW 13.4 % (11.5-15.5); WBC 11.8 k/uL (3.8-10.6)
[2020-06-07] MEDS ORDERED: MORPHINE SULFATE (PF) 0.3 MG/0.3 ML SYR ONE (12:08)
[2020-06-07] MEDS ORDERED: ePHEDrine SULFATE/0.9% NACL/PF 50 MG/5 ML SYRINGE IV ONE (12:08)
[2020-06-07] MEDS ORDERED: ONDANSETRON 4 MG/2 ML VIAL ONE (12:08)
[2020-06-07] MEDS ORDERED: OXYTOCIN 10 UNIT/ML 1 ML VIAL ONE (12:08)
[2020-06-07] MEDS ORDERED: NALBUPHINE 10 MG/ML (1 ML AMP) ONE (12:08)
[2020-06-07] MEDS ORDERED: ONDANSETRON 4 MG/2 ML VIAL IVP PRN (12:09)
[2020-06-07] MEDS ORDERED: diphenhydrAMINE 50 MG/ML 1 ML VIAL IVP PRN ×2 (12:09)
[2020-06-07] MEDS ORDERED: diphenhydrAMINE 25 MG CAP PO PRN (12:09)
[2020-06-07] MEDS ORDERED: METOCLOPRAMIDE 5 MG/ML 2 ML VIAL IVP PRN (12:09)
[2020-06-07] MEDS ORDERED: diphenhydrAMINE 50 MG CAP PO PRN (12:09)
[2020-06-07] MEDS ORDERED: NALOXONE 0.4 MG/ML 1 ML VIAL IV PRN (12:09)
[2020-06-07] MEDS ORDERED: SIMETHICONE 80 MG CHEWABLE PO PRN (12:09)
[2020-06-07] MEDS ORDERED: ZOLPIDEM 5 MG TAB PO PRN (12:09)
[2020-06-07] MEDS ORDERED: IBUPROFEN IV 800 MG in SODIUM CHLORIDE 0.9% 250 ML IV ONE (12:10)
[2020-06-07] MEDS ORDERED: OXYTOCIN 30 UNITS/500 ML NS 30 UNIT in SALINE 1 500ML.BAG IV SCH (12:15)
--- NOTE | 2020-06-07 13:11 | P.OP ---
Date of Procedure: 06/07/20 Preoperative Diagnosis: IUP at 39 weeks, history of 1, desires repeat Postoperative Diagnosis: Same Procedure(s) Performed: Repeat section Anesthesia: spinal Surgeon: Cyndie Betancur Solid Waste Facility Operator #1: Brian Ortiz Estimated Blood Loss (ml): 400 IV fluids (ml): 1,000 Urine output (ml): 200 Pathology: none sent Condition: stable Disposition: observation Indications for Procedure: Patient desirous of repeat Operative Findings: Normal uterus tubes and ovaries were appreciated, viable female infant delivered at 1234, weight of 7 lbs. 6 oz. and Apgars of 9 and 9 at one and 5 metastases respectively. Description of Procedure: Patient was taken back to the operating suite where spinal anesthesia was found be adequate by the anesthesia department. She was prepped and draped in normal sterile fashion in the dorsal supine position. A Pfannenstiel skin incision was made with the scalpel and carried through the underlying layer of fascia. The fascia was then incised in the midline and extended laterally. The superior aspect of fascial incision was then grasped moreno clamps, elevated and underlying rectus muscles dissected off sharply. Attention was then turned the inferior aspect of the fascial incision which was grasped moreno clamps, elevated and the underlying rectus muscles dissected off sharply. The peritoneum was then identified and entered. The bladder blade was then inserted into the pelvis. The vesicouterine peritoneum was identified and the bladder flap was created using sharp and blunt dissection. Hysterotomy incision was made with scalpel clear fluid was obtained the was delivered in a vertex presentation. The umbo cord was doubly clamped and cut and handed off to awaiting RN. The placenta was then delivered manually intact with a three- vessel cord being noted. The uterus was then cleared of all clots and debris. Uterus then delivered from the abdomen and closed with 0 Vicryl in a running locked fashion. A second inverting suture was then performed. The gutters were cleared of all clots and debris and the uterus was returned to the abdomen. The hysterotomy incision was inspected and hemostasis was appreciated. The peritoneum was then loosely reapproximated. The rectus muscles were inspected and found to be hemostatic. The fascia was then closed with 0 Vicryl in a running fashion from one lateral edge the midline and the other lateral edge the midline. Subcutaneous tissue was then irrigated and closed with 3-0 Vicryl in a running fashion. The skin was then closed with 4-0 Vicryl in a septic fashion. States strips and sterile dressings were applied as needed. A small skin tag was noted superior to the right side of the incision this was taken off sharply. Hemostasis was appreciated. All counts were noted to be correct 2 within the procedure patient and tolerated delivery well and are resting comfortably.
--- NOTE | 2020-06-07 13:12 | P.HPOB ---
History of Present Illness H&P Date: 06/07/20 Chief Complaint: IUP at 39 and 0/sevenths weeks, history of 1 desires repeat This is a 39-year-old 2 para 1 at 39-2/7 weeks that presented to labor and delivery for scheduled repeat section. Patient has been receiving routine care which is been essentially complicated. Patient did have an episode of contractions which resolved with fluids and terbutaline. Patient states she started leann well on the unit today, movement has been good. Patient denies vaginal bleeding or loss of fluid. On bloodwork this patient has a blood type of A+, rubella status immune, B surface antigen negative, HIV was declined RPR is nonreactive, group beta strep was negative. Patient did contract Covid during this and underwent growth ultrasounds every 4 weeks and testing at 32 weeks. All testing was normal. Review of Systems Constitutional: Denies chills, Denies fatigue, Denies fever Ears, nose, mouth and throat: Denies headache Cardiovascular: Reports leg edema Respiratory: Denies dyspnea Gastrointestinal: Denies constipation, Denies diarrhea, Denies nausea, Denies vomiting Genitourinary: Reports Past Medical History Past Medical History: No Reported History History of Any Multi-Drug Resistant Organisms: None Reported Past Surgical History: Section, Tonsillectomy Additional Past Surgical History / Comment(s): TMJ SX Past Anesthesia/Blood Transfusion Reactions: No Reported Reaction Past Psychological History: No Psychological Hx Reported Smoking Status: Never smoker Past Alcohol Use History: None Reported, Occasional Additional Past Alcohol Use History / Comment(s): HAS WINE WHEN NOT Past Drug Use History: None Reported - Past Family History Father Family Medical History: Coronary Artery Disease (CAD) Medications and Allergies Home Medications Medication Instructions Recorded Confirmed Type Jpz-Esup-Crvph Acid 1 cap PO DAILY 09/09/17 06/07/20 History [-U Capsule (formulary)] Aspirin 81 mg PO DAILY 05/08/20 06/07/20 History Allergies Allergy/AdvReac Type Severity Reaction Status Date / Time amoxicillin Allergy Unknown Verified 06/07/20 10:48 Childhood egg Allergy Anaphylaxis Verified 06/07/20 10:48 Penicillins Allergy Unknown Verified 06/07/20 10:48 Childhood Exam Osteopathic Statement: *. No significant issues noted on an osteopathic structural exam other than those noted in the History and Physical/Consult. Vital Signs Temp Pulse Resp BP 06/07/20 10:47 98.8 F 88 16 125/70 Intake and Output 06/06/20 06/07/20 06/07/20 22:59 06:59 14:59 Other: Weight 77.111 kg Targeted physical exam is performed in this date and saw runner a well-nourished well-developed female in no acute distress, breathing is noted to be nonlabored, heart has a regular rate and rhythm, abdomen is gravid and approp riate for gestational age, cervical exam is deferred heart tones returned be category 1 and she is leann every 3-4 minutes. Results Result Diagrams: 06/07/20 10:40 Abnormal Lab Results - Last 24 Hours (Table) 06/07/20 Range/Units 10:40 WBC 11.8 H (3.8-10.6) k/uL Neutrophils # 9.1 H (1.3-7.7) k/uL Assessment and Plan (1) Term Current Visit: No Status: Acute Code(s): Z34.80 - ENCOUNTER FOR SUPRVSN OF NORMAL , UNSP TRIMESTER SNOMED Code(s): 98053359 (2) H/O section Current Visit: Yes Status: Acute Code(s): Z98.891 - HISTORY OF UTERINE SCAR FROM PREVIOUS SURGERY SNOMED Code(s): 513005649 Plan: Pleasant 39-year-old at 39 weeks of gestation presents for repeat section. Patient is counseled on risks of surgery including but not limited to infection, bleeding, damage to bladder, bowel or injury. Patient states understanding and wishes to proceed.
[2020-06-07] MEDS: ACETAMINOPHEN IV (For NPO) 1,000 MG in EMPTY BAG 1 BAG IVPB SCH (13:44)
[2020-06-07] MEDS: LACTATED RINGERS 1,000 ML IV SCH ×2 (17:51→23:03)
[2020-06-07] MEDS: SENNOSIDES-DOCUSATE SODIUM 1 EACH TAB PO SCH (20:27)
[2020-06-07] MEDS: IBUPROFEN 600 MG TAB PO SCH (20:59)
[2020-06-07] MEDS ORDERED: ACETAMINOPHEN TAB 500 MG TAB PO SCH (22:00)
[2020-06-08 06:10] LABS: Basophils % (A) 0 %; Eosinophils # (A) 0.5 k/uL (0-0.7); Eosinophils % (A) 4 %; HCT 29.2 % (34.0-46.0); Lymphocytes # (A) 1.2 k/uL (1.0-4.8); Lymphocytes % (A) 10 %; MCH 30.9 pg (25.0-35.0); MCHC 33.3 g/dL (31.0-37.0); MCV 92.9 fL (80.0-100.0); Mean Platelet Volume 9.1; Monocytes # (A) 0.4 k/uL (0-1.0); Monocytes % (A) 4 %; Neutrophils # (A) 9.1 k/uL (1.3-7.7); Neutrophils % (A) 81 %; Platelet Count 137 k/uL (150-450); RBC 3.15 m/uL (3.80-5.40); RDW 13.3 % (11.5-15.5); WBC 11.3 k/uL (3.8-10.6)
--- NOTE | 2020-06-08 06:41 | P.PN ---
Progress Note - Text 06/08/20 622am 39-year-old female status post . Patient received Duramorph via the epidural catheter, patient seen and evaluated this morning for postop pain control, patient has a VAS of 2, no complains of nausea vomiting. Patient doing well
[2020-06-08 06:57] LABS: HGB 9.7 gm/dL (11.4-16.0)
[2020-06-08] MEDS: SENNOSIDES-DOCUSATE SODIUM 1 EACH TAB PO SCH ×2 (08:36→19:58)
[2020-06-08] MEDS: IBUPROFEN 600 MG TAB PO SCH ×4 (08:36→23:18)
--- NOTE | 2020-06-08 08:54 | P.PNOBGPC ---
Subjective - Subjective Principal diagnosis: POD 1 RCS Interval history: Patient did well overnight. She is ambulating and voiding without difficulty this morning. She states her pain is well-controlled. She is tolerating a regular diet without nausea or vomiting. She is breast-feeding without difficulty. Patient reports: Reports appetite normal, Reports voiding normally, Reports pain well controlled, Reports ambulating normally [place]: doing well, nursing well Objective - Vital Signs Latest vital signs: Vital Signs Temp Pulse Resp BP Pulse Ox 06/07/20 20:00 98.6 F 66 18 104/57 98 06/07/20 15:19 98.2 F 60 16 109/56 99 06/07/20 14:35 66 16 106/55 98 06/07/20 14:10 97.0 F L 72 16 110/65 98 06/07/20 13:56 68 16 107/67 98 06/07/20 13:41 61 16 127/90 98 06/07/20 13:25 69 16 118/52 06/07/20 13:10 98.0 F 68 16 126/62 06/07/20 10:47 98.8 F 88 16 125/70 Intake and Output 06/07/20 06/08/20 06/08/20 22:59 06:59 14:59 Output Total 2600 Balance -2600 Output: Urine 2600 Straight 1200 - Exam Extremities: Present: normal, edema Abdomen: Present: normal appearance, soft Incision: Present: normal, dry, intact Uterus: Present: normal, firm - Labs Labs: Abnormal Lab Results - Last 24 Hours (Table) 06/07/20 06/08/20 Range/Units 10:40 05:27 WBC 11.8 H 11.3 H (3.8-10.6) k/uL RBC 3.15 L (3.80-5.40) m/uL Hgb 9.7 L D (11.4-16.0) gm/dL Hct 29.2 L (34.0-46.0) % Plt Count 137 L (150-450) k/uL Neutrophils # 9.1 H 9.1 H (1.3-7.7) k/uL Assessment and Plan (1) Term Current Visit: No Status: Acute Code(s): Z34.80 - ENCOUNTER FOR SUPRVSN OF NORMAL , UNSP TRIMESTER SNOMED Code(s): 69195536 (2) H/O section Current Visit: Yes Status: Acute Code(s): Z98.891 - HISTORY OF UTERINE SCAR FROM PREVIOUS SURGERY SNOMED Code(s): 693868557 (3) S/P section Current Visit: No Status: Acute Code(s): Z98.891 - HISTORY OF UTERINE SCAR FROM PREVIOUS SURGERY SNOMED Code(s): 771724103 Plan: 39-year-old G2 now P2 status post repeat section is doing well this morning. Plan to continue routine postoperative care and anticipate discharge home tomorrow.
[2020-06-08] MEDS: ACETAMINOPHEN TAB 500 MG TAB PO SCH ×2 (13:11→23:17)
[2020-06-08] MEDS: ACETAMINOPHEN IV (For NPO) 1,000 MG in EMPTY BAG 1 BAG IVPB SCH (19:29)
[2020-06-08] MEDS: LACTATED RINGERS 1,000 ML IV SCH ×3 (19:29→23:18)
[2020-06-08] MEDS: PRENATAL VIT-IRON-FOLIC ACID 1 EACH CAP PO SCH (23:17)
[2020-06-09] MEDS: ACETAMINOPHEN TAB 500 MG TAB PO SCH ×2 (00:31→04:43)
[2020-06-09] MEDS: IBUPROFEN 600 MG TAB PO SCH ×2 (04:43→09:21)
--- NOTE | 2020-06-09 08:19 | P.DS ---
Providers Date of admission: 06/07/20 09:52 Expected date of discharge: 06/09/20 Attending physician: Cyndie Betancur Primary care physician: Stated None Hospital Course: This is a 39-year-old white female 2 para 1001 EDC for 121 who presented at 39 weeks gestation for repeat low transverse section. is remarkable for blood type A positive, rubella status immune, group B strep cultures negative. Please see dictated history and physical for details. Patient is advanced maternal age, had a prior section, has a circumvallate placenta and declined the option of . Patient underwent a repeat low transverse section and gave to a liveborn female with scores of 9 and 9 at one and 5 minutes respectively. There was a nuchal cord 1 easily reduced. Estimated blood loss 400 mL's. Infant weighed 3340 g or 7 lbs. 6 oz. Please see dictated operative note for details. This morning the patient is doing well. She is voiding, ambulate in, passing flatus without difficulty. Vital signs are stable and she is afebrile. Fundus is firm and in the midline, symmetric and 18 week size. Breasts are not engorged. Breast-feeding is going well. Incision is clean and dry, intact, Steri-Strips applied. infant is doing well. Patient is judged to be in very good condition for discharge home. She will follow-up in the office in 2 weeks for incision check. She is reminded no intercourse, tampons or douching. No heavy lifting. No driving for 2 weeks. She will use gwxm-[id number]-[id number] Advil or Aleve, or Motrin as needed for pain. She will call with any fevers shakes or chills, foul smelling or copious lochia, with the passage of large blood clots, with any pain not alleviated by [id number]-[id number]-[id number] products, or indeed with any concerns. [place] infant will f ollow-up with ammunition storage superintendent as per recommendations. Assessment: Doing well day number two Patient Condition at Discharge: Good Plan - Discharge Summary New Discharge Prescriptions: No Action Bke-Zkud-Pqiwj Acid [-U Capsule (formulary)] 1 cap PO DAILY Aspirin 81 mg PO DAILY Discharge Medication List Sfk-Tgmf-Awazd Acid [-U Capsule (formulary)] 1 cap PO DAILY 09/09/17 [History] Aspirin 81 mg PO DAILY 05/08/20 [History] Follow up Appointment(s)/Referral(s): Cyndie Betancur DO [Doctor of Osteopathic Medicine] - 2 Weeks
[2020-06-09] MEDS: PRENATAL VIT-IRON-FOLIC ACID 1 EACH CAP PO SCH (09:00)
[2020-06-09] MEDS: SENNOSIDES-DOCUSATE SODIUM 1 EACH TAB PO SCH (09:21)
[2020-06-09 10:01] VITALS: BP 111/71; PULSE 70; RESP 18; TEMP 98.6
== END 2020-06-09 11:53 | disposition home or self-care (01) | DRG 788 ==
LOC: 4FBP 09:52
PROVIDERS: ADMIT Obstetrics & Gynecology Obstetrics; ATTEND Obstetrics & Gynecology Obstetrics
PROC: 10D00Z1 Extraction of Products of Conception, Low, Open Approach (ICD-10-PCS; principal; 2020-06-07 12:00)
DX: O34.211 Maternal care for low transverse scar from previous cesarean delivery (principal); Z37.0 Single live birth; Z3A.39 39 weeks gestation of pregnancy; Z82.49 Family history of ischemic heart disease and other diseases of the circulatory system; Z79.82 Long term (current) use of aspirin; L29.9 Pruritus, unspecified; O69.81X0 Labor and delivery complicated by cord around neck, without compression, not applicable or unspecified
CPT/HCPCS: 85025; 86850; 86900; 86901

== ENCOUNTER 2022-09-08 19:09 | Observation (INO) | payer BC ==
[2022-09-08] MEDS ORDERED: SODIUM CHLORIDE 0.9% 500 ML 500 ML IV STA (19:50)
[2022-09-08] MEDS ORDERED: ASPIRIN 81 MG PO STA (19:50)
[2022-09-08] MEDS ORDERED: LORazepam 0.5 MG TAB PO STA (19:50)
[2022-09-08 20:17] LABS: Basophils % (A) 1 %; Eosinophils # (A) 0.2 k/uL (0-0.7); Eosinophils % (A) 4 %; HCT 36.8 % (34.0-46.0); HGB 12.4 gm/dL (11.4-16.0); Lymphocytes # (A) 1.9 k/uL (1.0-4.8); Lymphocytes % (A) 37 %; MCH 31.8 pg (25.0-35.0); MCHC 33.5 g/dL (31.0-37.0); MCV 94.8 fL (80.0-100.0); Mean Platelet Volume 9.3; Monocytes # (A) 0.4 k/uL (0-1.0); Monocytes % (A) 7 %; Neutrophils # (A) 2.6 k/uL (1.3-7.7); Neutrophils % (A) 50 %; Platelet Count 156 k/uL (150-450); RBC 3.89 m/uL (3.80-5.40); RDW 12.9 % (11.5-15.5); WBC 5.2 k/uL (3.8-10.6)
[2022-09-08 20:27] LABS: ALT 28 U/L (4-34); AST 27 U/L (14-36); African American GFR (CKD) 88 (>60 ml/min/1.73 sqM); Alkaline Phosphatase 46 U/L (38-126); Anion Gap 7 mmol/L; Blood Urea Nitrogen 17 mg/dL (7-17); Calcium 8.8 mg/dL (8.4-10.2); Carbon Dioxide 26 mmol/L (22-30); Chloride 107 mmol/L (98-107); Glucose 107 mg/dL (74-99); Non-African American GFR(CKD) 76 (>60 ml/min/1.73 sqM); Potassium 3.7 mmol/L (3.5-5.1); Sodium 140 mmol/L (137-145); Total Bilirubin 0.3 mg/dL (0.2-1.3)
[2022-09-08 20:45] LABS: INR 0.9 (<1.2); Partial Thromboplastin Time 24.4 sec (22.0-30.0); Prothrombin Time 10.1 sec (9.0-12.0)
--- NOTE | 2022-09-08 21:12 | XR ---
EXAMINATION TYPE: XR chest 2V DATE OF EXAM: 09/08/2022 COMPARISON: NONE HISTORY: Chest pain TECHNIQUE: Frontal and lateral views of the chest are obtained. FINDINGS: There is no focal air space opacity. No evidence for pneumothorax. No pleural effusion. The cardiac silhouette size is within normal limits. The osseous structures are grossly intact. IMPRESSION: 1. No acute cardiopulmonary process.
[2022-09-08] MEDS ORDERED: KETOROLAC 15 MG/ML 1 ML VIAL IVP STA (21:44)
[2022-09-08] MEDS: NITROGLYCERIN SL TABS 0.4 MG TAB SUBLINGUAL PRN ×2 (22:16→22:35)
[2022-09-08] MEDS ORDERED: NALOXONE 0.4 MG/ML 1 ML VIAL IV PRN (22:19)
--- NOTE | 2022-09-08 22:27 | ED ---
General Adult HPI - General Chief complaint: Chest Pain Stated complaint: Referal, abnormal EKG Time Seen by Provider: 09/08/22 19:30 Source: patient, RN notes reviewed, old records reviewed Mode of arrival: ambulatory - History of Present Illness Initial comments: Patient is a 41-year-old female who presents emergency Department complaining of chest pain. States the pain started earlier today. Originally presented to urgent care where they saw inverted T waves on EKG and sent her here for further evaluation. Denies any significant past medical history. Patient's father does have a history of CAD with a stent in his 60s. Does not smoke. He is active. Describes the pain as a somewhat pressure sensation that comes in waves worsening. It is over the left side of her chest. Does not radiate. Denies any nausea or diaphoresis. Denies any lightheadedness. States the pain started while she was lying down earlier. She thought it was just palpitations but now is a constant dull ache. - Related Data Home Medications Medication Instructions Recorded Confirmed L.acidoph,Paracasei, B.lactis 1 cap PO DAILY 09/08/22 09/08/22 [Probiotic] Allergies Allergy/AdvReac Type Severity Reaction Status Date / Time amoxicillin Allergy Unknown Verified 09/08/22 20:28 Childhood egg Allergy Anaphylaxis Verified 09/08/22 20:28 Penicillins Allergy Unknown Verified 09/08/22 20:28 Childhood Review of Systems ROS Statement: Those systems with pertinent positive or pertinent negative responses have been documented in the HPI. Review of Systems: CONST: Denies fever EYES: Denies blurry vision ENT: Denies nasal congestion C/V: Endorses chest pain RESP: Denies shortness of breath GI: Denies abdominal pain : Denies dysuria SKIN: Denies rash. MSK: Denies joint pain. NEURO: Denies headache ROS Other: All systems not noted in ROS Statement are negative. Past Medical History Past Medical History: No Reported History History of Any Multi-Drug Resistant Organisms: None Reported Past Surgical History: Section, Tonsillectomy Additional Past Surgical History / Comment(s): TMJ SX Past Anesthesia/Blood Transfusion Reactions: No Reported Reaction Past Psychological History: No Psychological Hx Reported Smoking Status: Never smoker Past Alcohol Use History: None Reported, Occasional Past Drug Use History: None Reported - Past Family History Father Family Medical History: Coronary Artery Disease (CAD) General Exam - General Exam Comments Initial Comments: General: Appears in no acute distress. Appears anxious. HEAD: Normal with no signs of head trauma. EYES: PERRLA, EOMI, conjunctiva normal, no discharge. ENT: Hearing grossly intact, normal oropharynx. RESPIRATORY: Clear breath sounds bilaterally. No wheezes, rales, or rhonchi. C/V: Regular rate and rhythm. S1 and S2 auscultated, peripheral pulses 2+ and intact throughout ABD: Abd is soft, nontender, nondistended EXT: Normal range of motion, no obvious deformity. No reproducible chest pain on palpation. SKIN: No rashes or lesions observed on exposed skin. NEURO: Alert and oriented x 4. Cranial nerves II-XII intact. No focal sensory or strength deficits. Course Vital Signs 09/08/22 09/08/22 09/08/22 19:11 19:39 22:01 Temperature 97.8 F Pulse Rate 68 68 64 Respiratory 20 20 18 Rate Blood Pressure 156/79 138/74 120/86 O2 Sat by Pulse 100 100 99 Oximetry 09/08/22 22:37 Temperature Pulse Rate 62 Respiratory 18 Rate Blood Pressure 108/62 O2 Sat by Pulse 99 Oximetry Medical Decision Making - Medical Decision Making Was pt. sent in by a medical professional or institution (, PA, TITLE CAMERA OPERATOR, urgent care, hospital, or long-term...) When possible be specific @ -No Did you speak to anyone other than the patient for history (EMS, parent, family, police, friend...)? What history was obtained from this source @ -No Did you review nursing and triage notes (agree or disagree)? Why? @ -I reviewed and agree with nursing and triage notes Were old charts reviewed (outside hosp., previous admission, EMS record, old EKG, old radiological studies, urgent care reports/EKG's, long-term records)? Report findings @ -No old charts were reviewed Differential Diagnosis (chest pain, altered mental status, abdominal pain women, abdominal pain men, vaginal bleeding, weakness, fever, dyspnea, syncope, heada alyce, dizziness, GI bleed, back pain, seizure, CVA, palpatations, mental health, musculoskeletal)? @ -Differential Chest Pain: Stable Angina, Unstable Angina, STEMI, NSTEMI Aortic Dissection, Pneumothorax, Musculoskeletal, Esophageal Spasm GERD, Cholecystitis, Pancreatitis, Zoster, this is not meant to be an all-inclusive list. EKG interpreted by me (3pts min.). @ -As above X-rays interpreted by me (1pt min.). @ -Chest x-ray reveals no obvious acute cardio pulmonary process. CT interpreted by me (1pt min.). @ -None done U/S interpreted by me (1pt. min.). @ -None done What testing was considered but not performed or refused? (CT, X-rays, U/S, labs)? Why? @ -None What meds were considered but not given or refused? Why? @ -None Did you discuss the management of the patient with other professionals (lamine yancey i.e. , PA, TITLE CAMERA OPERATOR, lab, RT, psych nurse, social worker school, immigration paralegal, teacher, vessel traffic officer, shoe caser)? Give summary @ -No Was smoking cessation discussed for >3mins.? @ -No Was critical care preformed (if so, how long)? @ -No Were there social determinants of health that impacted care today? How? (Homelessness, low income, unemployed, alcoholism, drug addiction, transportation, low edu. Level, literacy, decrease access to med. care, residential, rehab)? @ -No Was there de-escalation of care discussed even if they declined (Discuss DNR or withdrawal of care, Hospice)? DNR status @ -No What co-morbidities impacted this encounter? (DM, HTN, Smoking, COPD, CAD, Cancer, CVA, ARF, Chemo, Hep., AIDS, mental health diagnosis, sleep apnea, morbid obesity)? @ -None Was patient admitted / discharged? Hospital course, mention meds given and route, prescriptions, significant lab abnormalities, going to OR and other pertinent info. @ -Based on the patient's presentation and physical exam, I'm concerned for possible cardiopulmonary etiology for her current symptoms. Could be anxiety related. We will obtain cardiopulmonary labs. She'll initially be given an aspirin as well as Ativan. She was in agreement this plan. Vital signs are within acceptable limits. Patient's labs are remarkable for an undetectable troponin, a negative d-dimer. Chest x-ray shows no obvious acute cardio pulmonary process. Initial EKG shows nonspecific T-wave inversions, and on repeat EKG patient has T-wave inversions that appear to have moved, and are now in the inferior leads III and aVF. Patient has continued to have chest discomfort at this time. Nitroglycerin tablets were attempted at this time with minimal to no improvement. We did discuss her workup in over concern for possible cardiac etiology for this, with the T-wave inversions on EKG I did recommend we admitted to the hospital for further monitoring. She was in agreement this plan. Cardiology will be consulted. I spoke with the admitting physician, Dr. Silva accept the patient. Undiagnosed new problem with uncertain prognosis? @ -No Drug Therapy requiring intensive monitoring for toxicity (Heparin, Nitro, Insulin, Cardizem)? @ -No Were any procedures done? @ -No Diagnosis/symptom? @ -Chest pain,T-wave inversions Acute, or Chronic, or Acute on Chronic? @ -Acute Uncomplicated (without systemic symptoms) or Complicated (systemic symptoms)? @ -Complicated Side effects of treatment? @ -No Exacerbation, Progression, or Severe Exacerbation? @ -No Poses a threat to life or bodily function? How? (Chest pain, [place], HI, pneumonia, PE, COPD, DKA, ARF, appy, cholecystitis, CVA, Diverticulitis, Homicidal, Suicidal, threat to staff... and all critical care pts) @ -Potentially yes - Lab Data Result diagrams: 09/08/22 19:34 09/08/22 19:34 Lab Results 09/08/22 09/08/22 09/08/22 Range/Units 19:34 19:34 19:34 WBC 5.2 (3.8-10.6) k/uL RBC 3.89 (3.80-5.40) m/uL Hgb 12.4 (11.4-16.0) gm/dL Hct 36.8 (34.0-46.0) % MCV 94.8 (80.0-100.0) fL MCH 31.8 (25.0-35.0) pg MCHC 33.5 (31.0-37.0) g/dL RDW 12.9 (11.5-15.5) % Plt Count 156 (150-450) k/uL MPV 9.3 Neutrophils % 50 % Lymphocytes % 37 % Monocytes % 7 % Eosinophils % 4 % Basophils % 1 % Neutrophils # 2.6 (1.3-7.7) k/uL Lymphocytes # 1.9 (1.0-4.8) k/uL Monocytes # 0.4 (0-1.0) k/uL Eosinophils # 0.2 (0-0.7) k/uL Basophils # 0.0 (0-0.2) k/uL PT 10.1 (9.0-12.0) sec INR 0.9 (<1.2) APTT 24.4 (22.0-30.0) sec D-Dimer <0.17 (<0.60) mg/L FEU Sodium 140 (137-145) mmol/L Potassium 3.7 (3.5-5.1) mmol/L Chloride 107 (98-107) mmol/L Carbon Dioxide 26 (22-30) mmol/L Anion Gap 7 mmol/L BUN 17 (7-17) mg/dL Creatinine 0.95 (0.52-1.04) mg/dL Est GFR (CKD-EPI)AfAm 88 (>60 ml/min/1.73 sqM) Est GFR (CKD-EPI)NonAf 76 (>60 ml/min/1.73 sqM) Glucose 107 H (74-99) mg/dL Calcium 8.8 (8.4-10.2) mg/dL Magnesium 2.0 (1.6-2.3) mg/dL Total Bilirubin 0.3 (0.2-1.3) mg/dL AST 27 (14-36) U/L ALT 28 (4-34) U/L Alkaline Phosphatase 46 (38-126) U/L Troponin I (0.000-0.034) ng/mL NT-Pro-B Natriuret Pep pg/mL Total Protein 7.0 (6.3-8.2) g/dL Albumin 4.0 (3.5-5.0) g/dL 09/08/22 09/08/22 09/08/22 Range/Units 19:34 19:34 21:56 WBC (3.8-10.6) k/uL RBC (3.80-5.40) m/uL Hgb (11.4-16.0) gm/dL Hct (34.0-46.0) % MCV (80.0-100.0) fL MCH (25.0-35.0) pg MCHC (31.0-37.0) g/dL RDW (11.5-15.5) % Plt Count (150-450) k/uL MPV Neutrophils % % Lymphocytes % % Monocytes % % Eosinophils % % Basophils % % Neutrophils # (1.3-7.7) k/uL Lymphocytes # (1.0-4.8) k/uL Monocytes # (0-1.0) k/uL Eosinophils # (0-0.7) k/uL Basophils # (0-0.2) k/uL PT (9.0-12.0) sec INR (<1.2) APTT (22.0-30.0) sec D-Dimer (<0.60) mg/L FEU Sodium (137-145) mmol/L Potassium (3.5-5.1) mmol/L Chloride (98-107) mmol/L Carbon Dioxide (22-30) mmol/L Anion Gap mmol/L BUN (7-17) mg/dL Creatinine (0.52-1.04) mg/dL Est GFR (CKD-EPI)AfAm (>60 ml/min/1.73 sqM) Est GFR (CKD-EPI)NonAf (>60 ml/min/1.73 sqM) Glucose (74-99) mg/dL Calcium (8.4-10.2) mg/dL Magnesium (1.6-2.3) mg/dL Total Bilirubin (0.2-1.3) mg/dL AST (14-36) U/L ALT (4-34) U/L Alkaline Phosphatase (38-126) U/L Troponin I <0.012 <0.012 (0.000-0.034) ng/mL NT-Pro-B Natriuret Pep 105 pg/mL Total Protein (6.3-8.2) g/dL Albumin (3.5-5.0) g/dL - EKG Data -: EKG Interpreted by Me EKG Comments: 12-lead Electrocardiogram Interpretation Note EKG was reviewed and interpreted by myself. 12-lead ECG performed at 1917 is interpreted by me as revealing normal sinus rhythm at a rate of 66 beats per minute. [place] is normal. There are Q waves in the inferior leads. NJ interval is 141 ms, QRS duration is 98 ms, QTc is 402 ms. Nonspecific T-wave inversion in lead aVL and V2.. There were no ST or T wave abnormalities to suggest myocardial ischemia or injury. R wave progression across the precordium was satisfactory. 12-lead Electrocardiogram Interpretation Note EKG was reviewed and interpreted by myself. 12-lead ECG performed at 2148 is interpreted by me as revealing normal sinus rhythm at a rate of 62 beats per mi nute. [place] is normal. NJ interval is 145 ms, QRS duration is 97 ms, QTc is 426 seconds.. Patient has may be subtle T-wave inversion in lead V2 but now has T- wave inversions in leads III and aVF. No obvious reciprocal changes.. R wave progression across the precordium was satisfactory. . Disposition Clinical Impression: T wave inversion in EKG, Chest pain Disposition: ADMITTED IP TO THIS [facility] Condition: Stable Time of Disposition: 22:18
[2022-09-09] MEDS: HEPARIN SODIUM,PORCINE/PF 5,000 UNIT/0.5 ML SYRINGE SQ SCH ×2 (00:13→10:27)
--- NOTE | 2022-09-09 02:32 | P.HPIM ---
History of Present Illness H&P Date: 09/09/22 Chief Complaint: Chest pain 41-year-old female healthy no significant past medical history Comes in with sudden onset left-sided chest pain with palpitations she describes the pain as squeezing pain 5 out of 10 in severity left-sided nonradiating not associated profuse sweating dizziness lightheadedness nausea vomiting or shortness of breath. Happened suddenly while working on her desk at home. She admits to going through a lot of stress because of CAD some balancing work and life. She never had any cardiac history she denies any tobacco smoking illicit drugs or heavy alcohol She denies any recent hospital stay, travel or history of blood clots. She does report history of heart disease in her father requiring stents in his 60s She denies any limitations with her activity she works out on regular basis and does a lot of house chores with no limitations related to shortness of breath or chest pain. While in the ED chest pain improved with nitro, EKG did show some T wave inversion in lead 3 Review of systems Pertinent positives as noted in HPI. All other systems were reviewed and are negative On physical exam Constitutional: No acute distress, conversant, pleasant Eyes: Anicteric sclerae, moist conjunctiva, Pupils equal round reactive to light ENMT: NC/AT Oropharynx clear, no erythema, or exudates Neck: Supple, no masses, or JVD No carotid bruits No thyromegaly Lungs: Clear to auscultation Clear to percussion Normal respiratory effort, no accessory muscle use Cardiovascular: Heart regular in rate and rhythm, No murmurs, gallops, or rubs No peripheral edema Abdominal: Soft Nontender, no guarding, rebound or rigidity Abdomen moving with respiration Normoactive bowel sounds No hepatomegaly, No splenomegaly No palpable mass No abdominal wall hernia noted Skin: Normal temperature, tone, texture, turgor No induration No subcutaneous nodules No rash, lesions No ulcers Extremities: No digital cyanosis No clubbing Pedal pulses intact and symmetrical Radial pulses intact and symmetrical No calf tenderness Psychiatric: Alert and oriented to person, place and time Appropriate affect fair judgement Neuro Muscles Strength 5/5 in all 4 extremities Sensation to light touch grossly present throughout Cranial nerves II-XII grossly intact Lymphatics: no palpable cervical or supraclavicular lymph nodes Past Medical History Past Medical History: No Reported History Additional Past Medical History / Comment(s): covid 02/2020 and 09/2021, pneumonia 02/2022, sinus infection 11/2021 History of Any Multi-Drug Resistant Organisms: None Reported Past Surgical History: Section, Tonsillectomy Additional Past Surgical History / Comment(s): TMJ SX, sinus sx 04/2022 Past Anesthesia/Blood Transfusion Reactions: No Reported Reaction Past Psychological History: No Psychological Hx Reported Smoking Status: Never smoker Past Alcohol Use History: None Reported, Occasional Additional Past Alcohol Use History / Comment(s): HAS WINE WHEN NOT Past Drug Use History: None Reported - Past Family History Father Family Medical History: Coronary Artery Disease (CAD) Medications and Allergies Home Medications Medication Instructions Recorded Confirmed Type L.acidoph,Paracasei, B.lactis 1 cap PO DAILY 09/08/22 09/08/22 History [Probiotic] Allergies Allergy/AdvReac Type Severity Reaction Status Date / Time amoxicillin Allergy Unknown Verified 09/08/22 20:28 Childhood egg Allergy Anaphylaxis Verified 09/08/22 20:28 Penicillins Allergy Unknown Verified 09/08/22 20:28 Childhood Physical Exam Vitals: Vital Signs Temp Pulse Pulse Resp BP BP Pulse Ox 09/08/22 23:05 97.6 F 62 14 114/70 100 09/08/22 23:01 62 18 102/67 99 09/08/22 22:37 62 18 108/62 99 09/08/22 22:01 64 18 120/86 99 09/08/22 19:39 68 20 138/74 100 09/08/22 19:11 97.8 F 68 20 156/79 100 Intake and Output 09/08/22 09/08/22 09/09/22 14:59 22:59 06:59 Other: Weight 61.235 kg 61.235 kg Results CBC & Chem 7: 09/08/22 19:34 09/08/22 19:34 Labs: Abnormal Lab Results - Last 24 Hours (Table) 09/08/22 Range/Units 19:34 Glucose 107 H (74-99) mg/dL Thrombosis Risk Factor Assmnt - Choose All That Apply Any of the Below Risk Factors Present?: No Other Risk Factors: No Other congenital or acquired thrombophilia - If yes, enter type in comment: No Thrombosis Risk Factor Assessment Level: Very Low Risk Assessment and Plan Assessment: 41-year-old female with no significant past medical history coming in for chest pain and palpitations I discussed the case with the adductor patient found to have T-wave inversion in lead 3 I accepted the admission for cardiac workup to [facility] out acute coronary syndrome with anticipated length of stay less than 2 midnights atypical chest pain rule out ACS EKG T wave inversion in lead 3 CXR no acute pathology trops negative X2 support services tech monitor vital signs ASA, cardiology consult A1c, lipid panel , TSH pain control Full code DVT prophylaxis heparin subcu 3 times a day
[2022-09-09 03:22] LABS: Basophils % (A) 1 %; Eosinophils # (A) 0.2 k/uL (0-0.7); Eosinophils % (A) 4 %; HCT 31.5 % (34.0-46.0); HGB 10.3 gm/dL (11.4-16.0); Lymphocytes # (A) 2.2 k/uL (1.0-4.8); Lymphocytes % (A) 50 %; MCH 30.8 pg (25.0-35.0); MCHC 32.6 g/dL (31.0-37.0); MCV 94.2 fL (80.0-100.0); Mean Platelet Volume 8.9; Monocytes # (A) 0.2 k/uL (0-1.0); Monocytes % (A) 5 %; Neutrophils # (A) 1.6 k/uL (1.3-7.7); Neutrophils % (A) 38 %; Platelet Count 109 k/uL (150-450); RBC 3.34 m/uL (3.80-5.40); WBC 4.4 k/uL (3.8-10.6)
[2022-09-09 03:47] LABS: African American GFR (CKD) >90 (>60 ml/min/1.73 sqM); Anion Gap 4 mmol/L; Blood Urea Nitrogen 15 mg/dL (7-17); Calcium 7.8 mg/dL (8.4-10.2); Carbon Dioxide 22 mmol/L (22-30); Chloride 109 mmol/L (98-107); Glucose 88 mg/dL (74-99); Non-African American GFR(CKD) >90 (>60 ml/min/1.73 sqM); Potassium 3.7 mmol/L (3.5-5.1); Sodium 135 mmol/L (137-145)
[2022-09-09 07:17] VITALS: RESP 15
[2022-09-09] MEDS ORDERED: ASPIRIN 81 MG PO SCH (09:00)
[2022-09-09 11:09] LABS: Chol/HDL Ratio 2.29 Ratio; LDL Cholesterol,Calculated 53.8 mg/dL (0.0-131.0); VLDL Calculation 9.86 mg/dL (5.00-40.00)
--- NOTE | 2022-09-09 12:19 | CA ---
Exercise Stress Test Report Name: Margaret Villasenor Exam Date: 09/09/2022 09:24 Exam Location: [facility] Stress Ht (in): 67 Wt (lb): 135 BSA: 1.71 Ordering Phys: Varsha Wagner Referring Phys: HERMILA, Technologist: Parmjit Nieves Age: 41 Gender: F : 1980 Procedure CPT: Indications: CP ICD-10 Codes: Patient History: Medications: SEE CHART Meds past 24 hrs: Pretest Chest Pain: STRESS TEST [place] Protocol Exercise Duration (min:sec): 13:[address] Depressions (mm): Angina Score: Harper Score: Resting HR (bpm): 88 Peak HR (bpm): 169 Resting BP (mmHg): 113 / 76 Peak BP (mmHg): 156 / 66 MPHR: 181 Target HR: 154 % MPHR: 93 METS: 14.8 Total Dose: Peak Dose: Atropine: Double Product: 52023 BP Response: Stress Termination: TARGET HR REACHED/MAX EXERTION Stress Symptoms: NO SYMPTOMS Stress Summary: ECG ANALYSIS Resting ECG: Stress ECG: CONCLUSIONS Baseline EKG revealed normal sinus rhythm with minor T-wave inversion in lead V1 and lead 3. Patient walked on a standard Urbano protocol for 13 minutes 30 seconds and achieved a maximal heart rate of 168 bpm which is available 85% of predicted maximal. Resting heart rate was 88 bpm. Peak blood pressure was 156/66. Patient did not have angina. There were no EKG changes to indicate ischemia. There was no arrhythmia. By EKG criteria this is a negative stress test with excellent exercise capacity Dr. Cassidy Louise MD (Electronically Signed) Final Date: 09 September 2022 12:18
--- NOTE | 2022-09-09 13:26 | CA ---
Transthoracic Echo Report Name: Margaret Villasenor Age: 41 Gender: F : 1980 Exam Date: 09/09/2022 08:17 Exam Location: [facility] Ht (in): 67 Wt (lb): 135 Ordering Physician: Edgardo Hemphill MD Attending/Referring Phys: Welder Assistant Erica QUEVEDO Procedure CPT: Indications: Chest Pain Cardiac Hx: Technical Quality: Fair Contrast 1: Total Dose (mL): Contrast 2: Total Dose (mL): MEASUREMENTS (Male / Female) Normal Values 2D ECHO LV Diastolic Diameter PLAX 3.7 cm 4.2 - 5.9 / 3.9 - 5.3 cm LV Systolic Diameter PLAX 2.8 cm IVS Diastolic Thickness 0.7 cm 0.6 - 1.0 / 0.6 - 0.9 cm LVPW Diastolic Thickness 0.7 cm 0.6 - 1.0 / 0.6 - 0.9 cm LV Relative Wall Thickness 0.4 RV Internal Dim ED PLAX 1.9 cm M-MODE Aortic Root Diameter MM 2.6 cm LA Systolic Diameter MM 2.9 cm LA Ao Ratio MM 1.1 AV Cusp Separation MM 1.8 cm DOPPLER AV Peak Velocity 138.5 cm/s AV Peak Gradient 7.7 mmHg AV Mean Velocity 91.4 cm/s AV Mean Gradient 3.8 mmHg AV Velocity Time Integral 29.7 cm LVOT Peak Velocity 105.6 cm/s LVOT Peak Gradient 4.5 mmHg LVOT Velocity Time Integral 25.0 cm Mitral E Point Velocity 93.4 cm/s Mitral A Point Velocity 54.0 cm/s Mitral E to A Ratio 1.7 MV Deceleration Time 212.5 ms LV E' Lateral Velocity 14.2 cm/s Mitral E to LV E' Lateral Ratio 6.6 LV E' Septal Velocity 12.5 cm/s Mitral E to LV E' Septal Ratio 7.5 TR Peak Velocity 215.9 cm/s TR Peak Gradient 18.7 mmHg Right Atrial Pressure 15.0 mmHg Pulmonary Artery Systolic Pressu 33.7 mmHg Right Ventricular Systolic Press 33.7 mmHg FINDINGS Left Ventricle Normal left ventricular size, wall thickness. The ejection fraction is visually estimated at 55% Right Ventricle Mild right ventricular dilatation. Mild pulmonary hypertension. Right Atrium The right atrium is normal in size. Left Atrium The left atrium is normal in size. Mitral Valve Structurally normal mitral valve without significant stenosis or prolapse. There is no mitral regurgitation. Aortic Valve Structurally normal aortic valve without significant sclerosis or stenosis. Trace aortic regurgitation. Tricuspid Valve Structurally normal tricuspid valve without significant stenosis. Mild-to- moderate tricuspid regurgitation. Pulmonic Valve Structurally normal pulmonic valve without significant stenosis. There is no pulmonic regurgitation. Pericardium Normal pericardium without effusion. Aorta Normal aortic root dimension. CONCLUSIONS Normal LV size and systolic function. No significant abnormality on the Doppler exam. No pulmonary hypertension. No pericardial effusion Previewed by: Dr. Cassidy Louise MD (Electronically Signed) Final Date: 09 September 2022 13:25
--- NOTE | 2022-09-09 13:57 | P.DS ---
Providers Date of admission: 09/08/22 22:19 Expected date of discharge: 09/09/22 Attending physician: Christiano Silva MD Consults: 09/08/22 22:19 Consult Physician Routine Consulting Provider: [facility] Consult Reason/Comments: chest pain, t wave inversions Do you want consulting provider notified?: Yes Primary care physician: Shaquille Márquez [facility] Course: Discharge Diagnosis: Palpitations, Holter monitor placed, patient to follow up outpatient with PCP and automatic profile sander operator as discussed. Chest pain, acute coronary event ruled out. Hospital Course: Patient is a very pleasant 41-year-old female with no significant reported past medical history. She presented to the emergency department overnight with a chief complaint of chest pain. Patient reports while resting she felt a strange sensation like palpitation in her chest followed by a soreness to her left anterior chest. She denies having any cardiac history or family history of sudden cardiac before the age of 50. She denies nicotine use or alcohol use. She underwent full evaluation in the emergency department. CBC, coags, and CMP were unremarkable. D-dimer was negative at less than 0.017. Troponin normal findings at less than 0.012. ProBNP 105. Lipid profile was unremarkable. TSH is 2.450. EKG showing normal sinus rhythm at 62 bpm with no T-wave inversion in inferior leads 3 and aVF. Chest x-ray was negative for acute cardiopulmonary process. Patient was admitted under the services with consultation to cardiology. Troponins were trended all negative at less than 0.0124 draws. Echocardiogram was completed showing preserved EF of 55% with no reported structural or valvular abnormalities. Patient was evaluated by automatic profile sander operator and taken for stress test. Stress testing negative stress test with excellent exercise capacity. Holter monitor was placed. Patient cleared from cardiac perspective for outpatient follow-up in our office next week. Medically, patient is stable at this time and to follow up outpatient with PCP and cardiology as discussed. Physical exam: Patient seen and examined at bedside. She appeared to be resting comfortably and free from any complaints at this time. Patient reports feeling have a slight bruise to left anterior chest currently rating 1 out of 10. Vital signs reviewed and stable. General: Nontoxic, no distress and appears stated age. Derm: Skin warm and dry, normal coloration for ethnicity. Head: Atraumatic, normocephalic and symmetric. Eyes: EOMs intact, no lid lag, and anicteric sclera Mouth: no lip lesions, mucus membranes moist Cardiovascular: regular rate and rhythm with normal S1S2, no murmur, positive posterior tibial pulses bilaterally, and cap refill < 2 seconds. Lungs: Respirations even, regular, and unlabored on room air. Lungs CTA bilaterally, no rhonchi, no rales, no wheezing, and no accessory muscle usage. Abdominal: soft, nontender to palpation, no guarding, no appreciable organomegaly Ext: ROM intact. No gross muscle atrophy, no edema, no contractures Neuro: Speech clear, face symmetrical and CN II-XII grossly intact with no noted focal neuro deficits Psych: Alert and oriented to person, place, time, and situation. Appropriate and pleasant affect. A total of 31 minutes of time were spent preparing this complex discharge summary. Pt was discharged on 09/09/22 at 1: 56 PM. Patient was seen independently by Nurse Practitioner. This document was prepared using [employer] dictation software. Please allow for errors in delivery engineer while rare they do occur. I reviewed the documentation as provided by the SALOME above, who is the original author of this note. I agree with the documented assessment and plan, with the following changes: none I reviewed the documentation as provided by the SALOME above, who is the original author of this note. I agree with the documented assessment and plan, with the following changes: none Patient Condition at Discharge: Stable Plan - Discharge Summary Discharge Rx Participant: No New Discharge Prescriptions: Continue L.acidoph,Paracasei, B.lactis [Probiotic] 1 cap PO DAILY Discharge Medication List L.acidoph,Paracasei, B.lactis [Probiotic] 1 cap PO DAILY 09/08/22 [History] Follow up Appointment(s)/Referral(s): Cassidy Louise MD [STAFF PHYSICIAN] - 09/23/22 2:15 pm (Appointment at the [facility] near [place] ) Shaquille Gtz MD [Primary Care Provider] - 1-2 days Patient Instructions/Handouts: Chest Pain (DC) Activity/Diet/Wound Care/Special Instructions: Activity: As tolerated. Take breaks as needed. Diet: Heart healthy and carb consistent diet. Avoid salts, or foods with hidden salts such as canned or boxed foods and frozen dinners. Extra salt makes your heart work harder and traps the fluid in your body for longer. Special Instructions: Take all of your medications as directed and remember to keep all of your doctor's appointments and follow-up as needed. TSH results not available at this time, per labs they were sent out and will not be available. Patient to follow-up with TSH results at follow-up visit with automatic profile sander operator office next week upon review of Holter monitor results. Thank you for allowing us to participate in your care, it was truly a pleasure having you for our patient!!! Please return Holter monitor to main desk at the hospital - desk staff will notify Echo department of returned device. Discharge Disposition: HOME SELF-CARE
[2022-09-09 14:30] VITALS: BP 98/59; PULSE 75; TEMP 98.4
--- NOTE | 2022-09-09 15:21 | CONS ---
CONSULTATION HISTORY OF PRESENT ILLNESS: This is a 41-year-old lady, remarkably active person, who does run about 3 miles twice a week. She is in good health. She had an episode yesterday that made her concerned. She had what she described as a sensation of palpitations in her chest that lasted for 30 minutes on and off, and then she had tightness on the left side of the chest, and she came in with this symptom. Quality of her symptom is atypical. The chest pain seems musculoskeletal in nature. Her palpitations, however, have resolved completely, and while she was here, she was monitored, and she did not have any significant arrhythmia. She is resting comfortably without symptoms. She does have a family history of CAD, but she is otherwise a remarkably active lady, who does not smoke, runs regularly, and remains quite active. She is not on any regular prescription medications at home. PHYSICAL EXAMINATION: VITAL SIGNS: Blood pressure is 110/64, pulse rate is 56 per minute. HEENT: Unremarkable. Fundus was not examined by me. NECK: Supple. No JVD. I do not hear a carotid bruit. There is no thyromegaly. HEART: Reveals S1 and S2 heard normally. No rub, murmur, or gallop. LUNGS: Clear. ABDOMEN: Soft and nontender. EXTREMITIES: Lower extremities reveal normal pulses. No edema. CENTRAL NERVOUS SYSTEM: Normal. DIAGNOSTIC STUDIES: EKG revealed sinus mechanism, nonspecific T-wave inversion in leads V1 and V2. LABORATORY DATA: Revealed unremarkable troponins. IMPRESSION: 1. Atypical chest pain. 2. Family history of coronary artery disease. RECOMMENDATIONS: I am recommending that we will do an echo, a regular stress test, and 24-hour Holter and also check her thyroid function tests in view of her palpitations. If these are normal, she can be discharged. I discussed my thoughts in detail with the patient. Thank you very much for the consult. MMODL / IJN: [id number] /
--- NOTE | 2022-09-12 12:59 | HM ---
HOLTER MONITOR REPORT STUDY PERFORMED: A 24-hour Holter report. FINDINGS: The patient did not provide a diary. Predominant rhythm is sinus with a heart rate ranging of 45 to 116 beats per minute with average heart rate of 67 beats per minute. There were rare isolated PVCs. There was no evidence of any significant bradyarrhythmia or supraventricular tachycardia. This is an unremarkable 24-hour Holter with average heart rate of 67 and predominant rhythm is sinus. MMODL / IJN: [id number] /
== END 2022-09-09 15:44 | disposition home or self-care (01) ==
LOC: EC 19:09 → 6NMEDSUR 22:19
PROVIDERS: ADMIT Internal Medicine; ATTEND Internal Medicine
DX: R07.89 Other chest pain (principal); R00.2 Palpitations; R94.31 Abnormal electrocardiogram [ECG] [EKG]; F43.9 Reaction to severe stress, unspecified; Z88.0 Allergy status to penicillin; Z91.012 Allergy to eggs; Z98.891 History of uterine scar from previous surgery; Z98.890 Other specified postprocedural states; Z86.16 Personal history of COVID-19; Z87.01 Personal history of pneumonia (recurrent); Z86.19 Personal history of other infectious and parasitic diseases; Z82.49 Family history of ischemic heart disease and other diseases of the circulatory system
CPT/HCPCS: 96361 ×2; 96372; 96374; 99285; 36415; 94760; 93005; 93017; 93225; 93226; 93306; 85379; 83880; 80061; 80053; 80048; 84443; 83735; 84484 ×2; 85025 ×2; 85610; 85730; 71046; G0378 ×2; J1885; J1644

== ENCOUNTER → 2022-10-28 | Outpatient (CLI) | payer BC ==
--- NOTE | 2022-10-29 14:16 | MM ---
Reason for Exam: Screening (asymptomatic). Last mammogram was performed 3 year(s) and 7 month(s) ago. Patient History: Menarche at age 17. First Full-Term at age 38. Late child-bearing (after 30). Premenopausal. Patient has history of breast feeding. Maternal aunt had breast cancer, age 60. Risk Values: Monserrat 5 year model risk: 0.7%. NCI Lifetime model risk: 12.5%. Prior Study Comparison: 04/13/2019 Bilateral Diagnostic Mammogram, [facility]. Tissue Density: The breast tissue is extremely dense which could obscure a lesion on mammography. Findings: Analyzed By CAD. Pattern appears symmetrical and stable. No significant interval change is evident. Focal asymmetry in the upper right mediolateral oblique view appears to be a summation density on tomography. No suspicious groups of microcalcifications, spiculated or lobular masses, architectural distortion or other secondary signs of malignancy are mammographically apparent. Overall Assessment: Benign, BI-RAD 2 Management: Screening Mammogram of both breasts in 1 year. A negative mammogram report should not preclude additional follow up of suspicious palpable abnormalities. Patient should continue monthly self breast exam. A clinical breast exam by your physician is recommended on an annual basis and results should be correlated with mammographic findings. Electronically signed and approved by: Aleksander Jordan D.O. Radiologis
== END | disposition home or self-care (01) ==
LOC: RADMAMWWP 08:34
PROVIDERS: ATTEND Obstetrics & Gynecology Obstetrics
DX: Z12.31 Encounter for screening mammogram for malignant neoplasm of breast (principal); Z80.3 Family history of malignant neoplasm of breast
CPT/HCPCS: 77063; 77067

== ENCOUNTER → 2023-12-24 | Outpatient (CLI) | payer BC ==
--- NOTE | 2023-12-28 08:45 | MM ---
Reason for Exam: Screening (asymptomatic). Last mammogram was performed 1 year(s) and 2 month(s) ago. Patient History: Menarche at age 17. First Full-Term at age 38. Late child-bearing (after 30). Premenopausal. Patient has history of breast feeding. Maternal aunt had breast cancer, age 60. Last menstrual period: 12/12/2023 Risk Values: Monserrat 5 year model risk: 0.8%. NCI Lifetime model risk: 12.4%. Prior Study Comparison: 04/13/2019 Bilateral Diagnostic Mammogram, [facility]. 10/28/2022 Bilateral MG 3D screening mammo w/cad, [facility]. Tissue Density: The breasts are heterogeneously dense, which may obscure small masses. Findings: Analyzed By CAD. Right breast: There is no suspicious group of microcalcifications or new suspicious mass. Left breast: There is no suspicious group of microcalcifications or new suspicious mass. Overall Assessment: Negative, BI-RAD 1 Management: Screening Mammogram of both breasts in [address] [facility] will attempt to contact patient to return for supplemental views and ultrasound if indicated. Patient should continue monthly self-breast exams. A clinical breast exam by your physician is recommended on an annual basis. This exam should not preclude additional follow-up of suspicious palpable abnormalities. Note on Monserrat scores and lifetime risk: 1. A Monserrat score greater than 3% is considered moderate risk. If this is the case, consider specialist referral to assess eligibility for a risk reducing agent. 2. If overall lifetime risk for the development of breast cancer is 20% or higher, the patient may qualify for future screening with alternating mammogram and breast MRI. [facility], , 12/28/2023 8:41 AM. Electronically signed and approved by: Willian Flynn DO
== END | disposition home or self-care (01) ==
LOC: RADMAMWWP 12:44
PROVIDERS: ATTEND Obstetrics & Gynecology Obstetrics
CPT/HCPCS: 77063; 77067